=== PATIENT | female | born 1955 | race Hispanic/Latino ===

== ENCOUNTER 2018-11-28 03:32 | Emergency (ER) | payer OTHER ==
[2018-11-28 04:20] LABS: Absolute Lymphocytes (CBC) 2.7 K/uL (0.7-4.9); Absolute Monocytes 1.1 K/uL (0.1-1.3); Absolute Neutrophil 4.4 K/uL (1.8-8.0); Basophils % 0.7 % (0-1.3); Eosinophils % 1.2 % (0-4.4); Hematocrit 48.4 % (36.0-45.0); MPV 9.4 fL (7.6-11.3); Monocytes % 12.9 % (3.3-12.3); RBC Red Blood Cell Count 6.03 M/uL (3.86-4.86)
[2018-11-28] MEDS ORDERED: ONDANSETRON 4 MG/2 ML VIAL ONE (04:21)
[2018-11-28] MEDS ORDERED: MORPHINE 4 MG/ML SYR ONE (04:21)
[2018-11-28] MEDS ORDERED: PANTOPRAZOLE 40 MG INJ ONE (04:27)
[2018-11-28 04:41] LABS: Albumin 4.3 g/dL (3.4-5.0); Bilirubin Direct 0.2 mg/dL (0-0.2); Bilirubin Total 0.5 mg/dL (0.2-1.0); Protein, Total 8.4 g/dL (6.4-8.2)
[2018-11-28 04:43] LABS: Potassium 2.6 mmol/L (3.5-5.1)
[2018-11-28] MEDS ORDERED: NA CHLORIDE 0.9% 1,000 ML ONE ×3 (04:46→09:09)
[2018-11-28] MEDS ORDERED: KCL 20 MEQ/100 mL IVPB 20 MEQ/100 ML BAG IV ONE (06:10)
--- NOTE | 2018-11-28 07:12 | EDPHYS ---
Physician Documentation [facility] Name: Marlee Hoang Age: 63 yrs Sex: Female : 1955 Arrival Date: 11/28/2018 Time: 03:36 Bed 17 Private MD: ED Physician Angelito Bergeron HPI: 11/28 06:02 This 63 yrs old Female presents to ER via Ambulatory with complaints of tw4 Abdominal Pain, High Blood Sugar. 06:02 The patient or guardian reports. Onset: The symptoms/episode began/occurred today. tw4 Associated signs and symptoms: Pertinent positives:. Current symptoms: In the emergency department the patient's symptoms are unchanged from the initial presentation. The patient has not experienced similar symptoms in the past. The patient has not recently seen a physician. Historical: - Allergies: 03:49 Codeine; ea 09:44 Morphine; em 09:44 Levaquin; em - Home Meds: 09:44 amlodipine oral [Active]; em - PMHx: 03:49 Hypertension; ea - PSHx: 03:49 Hysterectomy; ea - Immunization history:: Adult Immunizations up to date. - Social history:: Smoking status: Patient/guardian denies using tobacco. - Ebola Screening: : No symptoms or risks identified at this time. ROS: 06:02 Constitutional: Negative for fever, chills, and weight loss, Eyes: Negative for injury, tw4 pain, redness, and discharge, ENT: Negative for injury, pain, and discharge, Cardiovascular: Negative for chest pain, palpitations, and edema, Respiratory: Negative for shortness of breath, cough, wheezing, and pleuritic chest pain, Back: Negative for injury and pain, MS/Extremity: Negative for injury and deformity, Skin: Negative for injury, rash, and discoloration. 06:02 Abdomen/GI: Positive for abdominal pain, Negative for nausea and vomiting, nausea, vomiting, and diarrhea, nausea, vomiting, abdominal cramps, abdominal distension, anorexia, dysphagia, hematemesis, black/tarry stool, rectal pain. Exam: 06:02 Constitutional: This is a well developed, well nourished patient who is awake, alert, tw4 and in no acute distress. Head/Face: Normocephalic, atraumatic. Chest/axilla: Normal chest wall appearance and motion. Nontender with no deformity. No lesions are appreciated. Cardiovascular: Regular rate and rhythm with a normal S1 and S2. No gallops, murmurs, or rubs. Normal PMI, no JVD. No pulse deficits. Respiratory: Lungs have equal breath sounds bilaterally, clear to auscultation and percussion. No rales, rhonchi or wheezes noted. No increased work of breathing, no retractions or nasal flaring. Back: No spinal tenderness. No costovertebral tenderness. Full range of motion. MS/ Extremity: Pulses equal, no cyanosis. Neurovascular intact. Full, normal range of motion. Neuro: Awake and alert, GCS 15, oriented to person, place, time, and situation. Cranial nerves II-XII grossly intact. Motor strength 5/5 in all extremities. Sensory grossly intact. Cerebellar exam normal. Normal gait. Psych: Awake, alert, with orientation to person, place and time. Behavior, mood, and affect are within normal limits. 06:02 Abdomen/GI: Inspection: abdomen appears normal, Bowel sounds: diminished, Palpation: mild abdominal tenderness, in the epigastric area, right upper quadrant and left upper quadrant. Vital Signs: 03:45 BP 157 / 110; Pulse 87; Resp 17; Temp 98.8; Pulse Ox 99% ; Weight 68.04 kg; Height 5 rr5 ft. 0 in. (152.40 cm); Pain 10/10; 04:35 BP 89 / 67; Pulse 66; Resp 17; Pulse Ox 98% ; rr5 04:40 BP 113 / 64; Pulse 64; Resp 16; Pulse Ox 100% ; rr5 04:49 BP 134 / 67; Pulse 96; Resp 17; Pulse Ox 96% ; rr5 05:15 BP 141 / 70; Pulse 77; Resp 18; Pulse Ox 98% ; rr5 05:30 BP 134 / 69; Pulse 73; Resp 17; Pulse Ox 99% ; rr5 06:00 BP 141 / 75; Pulse 80; Resp 20; Pulse Ox 99% ; rr5 06:40 BP 139 / 68; Pulse 79; Resp 19; Pulse Ox 100% ; rr5 08:30 BP 166 / 93; Pulse 80; Resp 20; Pulse Ox 100% on R/A; mh5 08:43 BP 66 / 27; Pulse 71; em 08:46 BP 83 / 60; Pulse 67; em 08:49 BP 85 / 68; Pulse 69; em 08:51 BP 121 / 69; Pulse 67; em 09:14 BP 154 / 74; Pulse 75; Resp 18; Pulse Ox 97% on R/A; mh5 09:40 BP 164 / 80; Pulse 78; Resp 18; Pulse Ox 99% on R/A; Pain 0/10; em 10:20 BP 167 / 73; Pulse 73; Resp 16; Pulse Ox 99% on R/A; em 03:45 Body Mass Index 29.29 (68.04 kg, 152.40 cm) rr5 05:[address] scan rr5 MDM: 03:43 Patient medically screened. tw4 06:09 Data reviewed: vital signs, nurses notes. Counseling: I had a detailed discussion with [facility] the patient and/or guardian regarding: the historical points, exam findings, and any diagnostic results supporting the discharge/admit diagnosis. 07:14 Differential diagnosis: gestational diabetes. Data interpreted: Pulse oximetry: 4 Interpretation: normal. ED course: D/W Dr Gamble hospitalist who agrees to accept pt for admitted. 11/28 03:43 Order name: Basic Metabolic Panel; Complete Time: 05:58 tw4 11/28 05:58 Interpretation: Normal except: GLUC 342; K 2.6; NA 135; BUN 24; GFR 52. tw4 11/28 03:43 Order name: CBC with Diff; Complete Time: 05:56 tw4 11/28 05:56 Interpretation: Normal except: RBC 6.03; HGB 16.5; HCT 48.4; MN% 12.9. tw4 11/28 03:43 Order name: Creatinine for Radiology; Complete Time: 04:39 tw4 11/28 04:39 Interpretation: Normal except: GFR 54. tw4 11/28 03:43 Order name: Hepatic Function; Complete Time: 05:57 tw 11/28 05:57 Interpretation: Normal except: ALK 168; TP 8.4; GLOB 4.1; A/G 1.0. tw4 11/28 03:43 Order name: Lipase; Complete Time: 05:57 tw4 11/28 05:57 Interpretation: Within normal limits: LIP 249. tw4 11/28 06:39 Order name: Troponin (emerg Dept Use Only) tw4 11/28 04:24 Order name: CT Abd/Pelvis - W/Contrast tw4 11/28 08:40 Order name: CXR XRAY eb 11/28 03:43 Order name: IV Saline Lock; Complete Time: 04:00 tw4 11/28 03:43 Order name: Labs collected and sent; Complete Time: 04:08 tw4 11/28 06:57 Order name: EKG; Complete Time: 06:57 tw4 11/28 07:01 Order name: Nasogastric Tube; Complete Time: 08:57 tw4 Administered Medications: Discontinued: LevaQUIN 500 mg 100 ml IVPB once over 60 mins 04:16 Drug: Zofran 4 mg Route: IVP; Site: right antecubital; rr5 05:41 Follow up: Response: No adverse reaction rr5 04:19 Drug: morphine 4 mg Route: IVP; Site: right antecubital; rr5 04:35 Follow up: Response: Adverse reaction, Physician notified rr5 06:24 Follow up: Response: Marked relief of symptoms rr5 04:24 Drug: ProTONIX 40 mg Route: IVP; Site: right antecubital; rr5 05:41 Follow up: Response: No adverse reaction rr5 04:35 Drug: NS 0.9% 1000 ml Route: IV; Rate: 1 bolus; Site: right antecubital; rr5 05:59 Follow up: Response: No adverse reaction; IV Status: Completed infusion; IV Intake: rr5 1000ml 06:20 Drug: Potassium Chloride 20 mEq Route: IV; Rate: calculated rate; Site: right rr5 antecubital; 08:10 Follow up: Response: No adverse reaction; IV Status: Completed infusion; IV Intake: em 100ml 06:20 Drug: NS 0.9% 1000 ml Route: IV; Rate: 100 ml/hr; Site: right antecubital; rr5 08:10 Follow up: IV Status: Completed infusion; IV Intake: 1000ml em 08:30 Drug: Flagyl 500 mg Volume: 100 ml; Route: IVPB; Rate: 200 ml/hr; Infused Over: 30 em mins; Site: right antecubital; 10:15 Follow up: Response: No adverse reaction; IV Status: Completed infusion; IV Intake: em 200ml 08:30 Drug: LevaQUIN 500 mg Volume: 100 ml; Route: IVPB; Infused Over: 60 mins; Site: right em antecubital; 09:05 Drug: NS 0.9% 1000 ml Route: IV; Rate: 1 bolus; Site: left antecubital; em 10:30 Follow up: IV Status: Completed infusion; IV Intake: 1000ml em 10:14 Drug: Rocephin 1 grams Route: IV; Rate: calculated rate; Site: left antecubital; ss 10:20 Follow up: Response: No adverse reaction; IV Status: Completed infusion; IV Intake: 10mlem Point of Care Testing: Blood Glucose: 03:47 Blood Glucose: 288 mg/dL; rr5 Ranges: Critical Glucose Levels:Adult <50 mg/dl or >400 mg/dl <40 mg/dl or >180 mg/dl Disposition: 11/28/18 07:11 Transfer ordered to [facility]. Diagnosis are Small bowel obstruction, Hematemesis. - Reason for transfer: Higher level of care. - Accepting physician is Hospitalist accepts at [facility]. - Condition is Stable. - Problem is new. - Symptoms have improved. Signatures: Dispatcher [employer] EDGeovani Mclaughlin, LABOR RELATIONS OFFICER LABOR RELATIONS OFFICER Annel Hudson RN RN Freda Mancini RN RN Angelito Ballesteros MD MD tw4 Guero Orr RN RN rr5 Corrections: (The following items were deleted from the chart) 05:58 04:39 Abnormal. tw4 tw4 09:44 03:49 Home Meds: None; ea em 10:59 07:11 11/28/2018 07:11 Transfer ordered to [facility]. Diagnosis is em Small bowel obstruction; Hematemesis. Reason for transfer: Higher level of care. Accepting physician is Hospitalist accepts at [facility]. Condition is Stable. Problem is new. Symptoms have improved. tw4
--- NOTE | 2018-11-28 07:12 | ER ---
Nurse's Notes [facility] Name: Marlee Hoang Age: 63 yrs Sex: Female : 1955 Arrival Date: 11/28/2018 Time: 03:36 Bed 17 Private MD: Diagnosis: Small bowel obstruction;Hematemesis Presentation: 11/28 03:45 Presenting complaint: Patient states: She has been having abdominal pain n/v/d since ea Nov 23, reports she had a few episodes of dark black vomit on the but refused to come to the hospital. Stated "the vomiting stopped but the pain got so bad today I had to come" Today she reports the pain in her abdomen became more intense and erin like it was burning. Transition of care: patient was not received from another setting of care. Onset of symptoms was November 28, 2018. Risk Assessment: Do you want to hurt yourself or someone else? Patient reports no desire to harm self or others. Initial Sepsis Screen: Does the patient meet any 2 criteria? No. Patient's initial sepsis screen is negative. Does the patient have a suspected source of infection? No. Patient's initial sepsis screen is negative. Care prior to arrival: None. 03:45 Method Of Arrival: Ambulatory ea 03:45 Acuity: LORI 3 ea Triage Assessment: 03:49 General: Appears uncomfortable, Behavior is appropriate for age. Pain: Complains of ea pain in right lower quadrant and left lower quadrant Quality of pain is described as burning, Aggravated by laying down intensifies the pain. Neuro: Level of Consciousness is awake, alert, obeys commands, Oriented to person, place, time, situation. Cardiovascular: Patient's skin is warm and dry. Respiratory: Airway is patent Respiratory effort is even, unlabored, Respiratory pattern is regular, symmetrical. GI: Abdomen is non-distended. Derm: Skin is pink, warm \\T\\ dry. Historical: - Allergies: 03:49 Codeine; ea 09:44 Morphine; em 09:44 Levaquin; em - Home Meds: 09:44 amlodipine oral [Active]; em - PMHx: 03:49 Hypertension; ea - PSHx: 03:49 Hysterectomy; ea - Immunization history:: Adult Immunizations up to date. - Social history:: Smoking status: Patient/guardian denies using tobacco. - Ebola Screening: : No symptoms or risks identified at this time. Screenin:48 Abuse screen: Denies threats or abuse. Nutritional screening: No deficits noted. ea Tuberculosis screening: No symptoms or risk factors identified. Fall Risk None identified. Assessment: 03:55 General: Appears in no apparent distress. uncomfortable, Behavior is calm, cooperative, rr5 appropriate for age. Pain: Complains of pain in abdomen Pain does not radiate. Pain currently is 10 out of 10 on a pain scale. Quality of pain is described as sharp, Pain began gradually, Is intermittent. Neuro: Level of Consciousness is awake, alert, obeys commands, Oriented to person, place, time, situation. Cardiovascular: Capillary refill < 3 seconds Patient's skin is warm and dry. Respiratory: Airway is patent Respiratory effort is even, unlabored, Respiratory pattern is regular, symmetrical. GI: Bowel sounds present X 4 quads. Abd is soft and non tender X 4 quads. Reports lower abdominal pain, upper abdominal pain, nausea, vomiting, vomited black as stated. : No signs and/or symptoms were reported regarding the genitourinary system. EENT: No signs and/or symptoms were reported regarding the EENT system. Derm: Skin is intact, Skin temperature is warm. Musculoskeletal: Capillary refill < 3 seconds, Range of motion: intact in all extremities. 04:35 Reassessment: complaints of dizziness BP checked 89/67mmHg. ED provider informed with rr5 order made and carried out. 04:40 Reassessment: 113/64 bp rechecked. Patient states feeling better. Patient states rr5 symptoms have improved. 05:10 Reassessment: Patient appears in no apparent distress at this time. Patient and/or rr5 family updated on plan of care and expected duration. Pain level reassessed. sent to CT scan Patient states feeling better. Patient states symptoms have improved. 06:20 Reassessment: Patient appears in no apparent distress at this time. Patient and/or rr5 family updated on plan of care and expected duration. Pain level reassessed. EDP came and explained the plan of care, patient is for transfer. Patient states feeling better. Patient states symptoms have improved. 08:00 Reassessment: Patient appears in no apparent distress at this time. Patient and/or em family updated on plan of care and expected duration. Pain level reassessed. Patient is alert, oriented x 3, equal unlabored respirations, skin warm/dry/pink. Patient denies pain at this time. Patient states feeling better. 08:36 Reassessment: Patient appears in no apparent distress at this time. Right AC IV em infiltrated, warm compresses placed, IV D/C. 08:43 Reassessment: pt became dizzy and diaphoretic after IV antibiotics were started (Flagyl em and Levaquin), BP 66/27, HR 71, pt placed in Trendelenburg and charge nurse and Dr. Corral notified, ordered to D/C Levaquin and give rocephin, started 2 L NS bolus, pt A\\T\\Ox3. 08:51 Reassessment: Patient appears in no apparent distress at this time. Patient is alert, em oriented x 3, equal unlabored respirations, skin warm/dry/pink. BP 121/69, HR 67. 09:15 Reassessment: Patient appears in no apparent distress at this time. Patient and/or em family updated on plan of care and expected duration. Pain level reassessed. Patient is alert, oriented x 3, equal unlabored respirations, skin warm/dry/pink. pt reports feeling better BP has improved, will continue to monitor Patient states symptoms have improved. 09:43 Reassessment: report called to SADE Liu at [facility], pending transportation. em 10:20 Reassessment: Patient appears in no apparent distress at this time. Patient and/or em family updated on plan of care and expected duration. Pain level reassessed. Patient is alert, oriented x 3, equal unlabored respirations, skin warm/dry/pink. 10:44 Reassessment: Patient appears in no apparent distress at this time. Patient and/or em family updated on plan of care and expected duration. Pain level reassessed. Patient is alert, oriented x 3, equal unlabored respirations, skin warm/dry/pink. report given to [facility], will transport pt to [facility]. Vital Signs: 03:45 BP 157 / 110; Pulse 87; Resp 17; Temp 98.8; Pulse Ox 99% ; Weight 68.04 kg; Height 5 rr5 ft. 0 in. (152.40 cm); Pain 10/10; 04:35 BP 89 / 67; Pulse 66; Resp 17; Pulse Ox 98% ; rr5 04:40 BP 113 / 64; Pulse 64; Resp 16; Pulse Ox 100% ; rr5 04:49 BP 134 / 67; Pulse 96; Resp 17; Pulse Ox 96% ; rr5 05:15 BP 141 / 70; Pulse 77; Resp 18; Pulse Ox 98% ; rr5 05:30 BP 134 / 69; Pulse 73; Resp 17; Pulse Ox 99% ; rr5 06:00 BP 141 / 75; Pulse 80; Resp 20; Pulse Ox 99% ; rr5 06:40 BP 139 / 68; Pulse 79; Resp 19; Pulse Ox 100% ; rr5 08:30 BP 166 / 93; Pulse 80; Resp 20; Pulse Ox 100% on R/A; mh5 08:43 BP 66 / 27; Pulse 71; em 08:46 BP 83 / 60; Pulse 67; em 08:49 BP 85 / 68; Pulse 69; em 08:51 BP 121 / 69; Pulse 67; em 09:14 BP 154 / 74; Pulse 75; Resp 18; Pulse Ox 97% on R/A; mh5 09:40 BP 164 / 80; Pulse 78; Resp 18; Pulse Ox 99% on R/A; Pain 0/10; em 10:20 BP 167 / 73; Pulse 73; Resp 16; Pulse Ox 99% on R/A; em 03:45 Body Mass Index 29.29 (68.04 kg, 152.40 cm) rr5 05:[address] scan rr5 ED Course: 03:36 Patient arrived in ED. am2 03:43 Angelito Bergeron MD is Attending Physician. tw4 03:45 Pulse ox on. NIBP on. rr5 03:47 Guero Orr RN is Primary Nurse. rr5 03:48 Triage completed. ea 03:48 Patient has correct armband on for positive identification. Bed in low position. Call ea light in reach. Side rails up X2. 03:48 Arm band placed on right wrist. Patient placed in an exam room, on a stretcher, on ea pulse oximetry. 03:59 Inserted saline lock: 22 gauge in right antecubital area, using aseptic technique. Blood collected. 03:59 Initial lab(s) drawn, by me, sent to lab. 05:14 CT completed. Patient tolerated procedure well. Patient moved to CT via stretcher. eh Patient moved back from CT. 05:15 CT Abd/Pelvis - W/Contrast In Process Unspecified. EDMS 06:12 initiated a transfer with Marga Garcia at the [facility] transfer center. eb 06:30 digital operations analyst on. rr5 06:31 connected the GI doctor siebel solution architect for [facility] with ED doc for patient transfer eb consultation. 06:38 connected the Hospitalist doctor siebel solution architect for [facility] with ED doc for patient eb transfer consulation. 07:17 administrative approval given by Marga Garcia , patient is going to 16 tower bed 15, eb report to be called to [phone]/ [facility]mitry Schimtz has accepted the patient in transfer. 08:14 NGT: inserted 16 Fr. via right nare. verified placement of air over stomach, verified em return of gastric contents, Placement verified by X-ray, to intermittent suction. Returned gastric contents. Returned bile. Amount of gastric contents removed by suction 300ml. Patient tolerated well. 08:36 IV discontinued, intact, bleeding controlled, No redness/swelling at site. Pressure em dressing applied. 08:55 Inserted saline lock: 20 gauge in left antecubital area, using aseptic technique. em 09:13 EKG done, by ED staff, reviewed by Oscar Corral MD. 5 09:22 CXR XRAY In Process Unspecified. EDMS 09:48 No provider procedures requiring assistance completed. Patient transferred, IV remains em in place. Administered Medications: Discontinued: LevaQUIN 500 mg 100 ml IVPB once over 60 mins 04:16 Drug: Zofran 4 mg Route: IVP; Site: right antecubital; rr5 05:41 Follow up: Response: No adverse reaction rr5 04:19 Drug: morphine 4 mg Route: IVP; Site: right antecubital; rr5 04:35 Follow up: Response: Adverse reaction, Physician notified rr5 06:24 Follow up: Response: Marked relief of symptoms rr5 04:24 Drug: ProTONIX 40 mg Route: IVP; Site: right antecubital; rr5 05:41 Follow up: Response: No adverse reaction rr5 04:35 Drug: NS 0.9% 1000 ml Route: IV; Rate: 1 bolus; Site: right antecubital; rr5 05:59 Follow up: Response: No adverse reaction; IV Status: Completed infusion; IV Intake: rr5 1000ml 06:20 Drug: Potassium Chloride 20 mEq Route: IV; Rate: calculated rate; Site: right rr5 antecubital; 08:10 Follow up: Response: No adverse reaction; IV Status: Completed infusion; IV Intake: em 100ml 06:20 Drug: NS 0.9% 1000 ml Route: IV; Rate: 100 ml/hr; Site: right antecubital; rr5 08:10 Follow up: IV Status: Completed infusion; IV Intake: 1000ml em 08:30 Drug: Flagyl 500 mg Volume: 100 ml; Route: IVPB; Rate: 200 ml/hr; Infused Over: 30 em mins; Site: right antecubital; 10:15 Follow up: Response: No adverse reaction; IV Status: Completed infusion; IV Intake: em 200ml 08:30 Drug: LevaQUIN 500 mg Volume: 100 ml; Route: IVPB; Infused Over: 60 mins; Site: right em antecubital; 09:05 Drug: NS 0.9% 1000 ml Route: IV; Rate: 1 bolus; Site: left antecubital; em 10:30 Follow up: IV Status: Completed infusion; IV Intake: 1000ml em 10:14 Drug: Rocephin 1 grams Route: IV; Rate: calculated rate; Site: left antecubital; ss 10:20 Follow up: Response: No adverse reaction; IV Status: Completed infusion; IV Intake: 10mlem Point of Care Testing: Blood Glucose: 03:47 Blood Glucose: 288 mg/dL; rr5 Ranges: Intake: 05:59 IV: 1000ml; Total: 1000ml. rr5 08:10 IV: 100ml; Total: 1100ml. em 08:10 IV: 1000ml; Total: 2100ml. em 10:15 IV: 200ml; Total: 2300ml. em 10:20 IV: 10ml; Total: 2310ml. em 10:30 IV: 1000ml; Total: 3310ml. em Outcome: 07:11 ER care complete, transfer ordered by tw4 10:59 Transferred by [facility] to [facility], Transfer form completed. em X-rays sent w/ patient. :59 Condition: good 10:59 Instructed on the need for transfer, Demonstrated understanding of instructions. 10:59 Patient left the ED. em Signatures: Dispatcher [employer] EDMS Gume Ramos, Geovani, BREADMAN BREADMAN em Annel Hudson, SADE RN Daysi Patel [facility] Tor, Ericka 2 Freda Mancini RN RN Angelito Ballesteros MD MD tw4 Sharmaine Bowman Raymond RN RN rr5 Josie Craft gm Corrections: (The following items were deleted from the chart) 05:16 05:10 BP 141 / 70; Pulse 77bpm; Resp 18bpm; Pulse Ox 98%; came back from ct scan; rr5 rr5 09:36 08:30 Reassessment: pt became dizzy and diaphoretic after IV antibiotics were started em (Flagyl and Levaquin), BP 66/27, HR 71, pt placed in Trendelenburg and charge nurse and Dr. Corral notified, ordered to D/C Levaquin and give rocephin, started 2 L NS bolus, pt A\\T\\Ox3 em 09:44 03:49 Home Meds: None; ea em 09:45 08:16 Reassessment: Patient appears in no apparent distress at this time. Right AC IV em infiltrated, warm compresses placed, IV D/C em
[2018-11-28] MEDS ORDERED: METRONIDAZOLE 500mg IVPB 500 MG/100 ML BAG IV ONE (08:04)
[2018-11-28] MEDS ORDERED: Levofloxacin500mg IV 500 MG/100 ML BAG IV ONE (08:04)
--- NOTE | 2018-11-28 08:53 | RAD REPORT ---
EXAM DESCRIPTION: CTAbdomen Pelvis W Contrast - 11/28/2018 7:17 am CLINICAL HISTORY: Abdominal pain. ABD PAIN COMPARISON: No comparisons TECHNIQUE: Biphasic CT imaging of the abdomen and pelvis was performed with 100 ml non-ionic IV cont rast. All CT scans are performed using dose optimization technique as appropriate and may include automated exposure control or mA/KV adjustment according to patient size. FINDINGS: Mild linear subsegmental atelectasis is present both lung bases.Small hiatal hernia. Diffuse fatty liver is present. Calcified gallstone noted. The spleen, pancreas, adrenal glands and k idneys are within normal limits. A single distended loop of small intestine is present in the left abdomen. Fluid-filled colon is seen which may indicate ileus. The appendix is normal. No evidence of significant lymphadenopathy. No suspicious bony findings. IMPRESSION: A single distended loop of small intestine is seen in the left abdomen. In the correct c linical setting, this may indicate a developing SBO. Cholelithiasis.
--- NOTE | 2018-11-28 09:30 | RAD REPORT ---
EXAM DESCRIPTION: RAD - Chest Single View - 11/28/2018 9:22 am CLINICAL HISTORY: ng tube placement Chest pain. COMPARISON: No comparisons FINDINGS: Portable technique limits examination quality. The lungs are grossly clear. The heart is upper limit of normal in size. Enteric tube descends into t he stomach.
[2018-11-28] MEDS ORDERED: CEFTRIAXONE/SWI 1gm 1 GM/10 ML SYR ONE (10:19)
--- NOTE | 2018-11-28 14:50 | EKG ---
Test Date: 2018-11-28 Test Time: 07:33:26 Cell Phone Repair Technician: GIULIANO MEASUREMENT RESULTS: Intervals: Rate: 77 PA: 160 QRSD: 86 QT: 418 QTc: 473 [place]: P: 40 PA: 160 QRS: 12 T: -87 INTERPRETIVE STATEMENTS: Normal sinus rhythm ST & T wave abnormality, consider inferolateral ischemia Prolonged QT Abnormal ECG Compared to ECG 10/07/2006 13:20:04 ST (T wave) deviation now present Possible ischemia now present Prolonged QT interval now present Sinus bradycardia no longer present Electronically Signed On 11-28-18 14:50:05 CAMERA MECHANIC by [place]
== END 2018-11-28 10:59 | disposition short-term general hospital (02) ==
LOC: ER 03:32
DX: K56.699 Other intestinal obstruction unspecified as to partial versus complete obstruction (principal); K92.0 Hematemesis; I10 Essential (primary) hypertension; Z88.1 Allergy status to other antibiotic agents; Z88.5 Allergy status to narcotic agent
CPT/HCPCS: 36415; 71045; 74177; 80048; 80076; 82962; 83690; 84484; 85025; 93005; 99285; C9113; J0696; J2405; J7030; Q9967

== ENCOUNTER 2019-01-02 07:24 | Emergency (ER) | payer OTHER ==
--- OUTSIDE RECORDS SUMMARY | 2019-01-02 07:26 | XMS REPORT ---
:1955 Author Organization [facility]neut Address [address] [place] [address] Dr. Garcia [address] [place] [address] Care Team Providers Name Role Phone SHAYNE ESTEVEZ BRADENDIMITRIOS Unavailable Unavailable Problems This patient has no known problems. Allergies, Adverse Reactions, Alerts This patient has no known allergies or adverse reactions. Medications This patient has no known medications. Results Test Description Test Time Test Comments Text Results Atomic Results Result Comments POCT-GLUCOSE METER 2018-11-29 11:35:00 Test Item Value Reference Range Comments POC-GLUCOSE METER (BEAKER) (test 182 mg/dL 70-110 TESTED AT [address] tddb=5220) [facility] [id number] POCT-GLUCOSE [id number] 06:04:00 Test Item Value Reference Range Comments POC-GLUCOSE METER (BEAKER) 206 mg/dL 70-110 TESTED AT [address] (test ctty=4590) [facility] [id number] POCT-GLUCOSE [id number] 00:17:00 Test Item Value Reference Range Comments POC-GLUCOSE METER (BEAKER) 178 mg/dL 70-110 TESTED AT [address] (test eyfr=3371) [facility] [id number] POCT-GLUCOSE [id number] 18:20:00 Test Item Value Reference Range Comments POC-GLUCOSE METER (BEAKER) 156 mg/dL 70-110 TESTED AT [address] (test khaa=8079) [facility] [address] HEMOGLOBIN [id number] 16:48:00 Test Item Value Reference Range Comments HEMOGLOBIN A1C (BEAKER) (test hupe=141) 13.0 % 4.3-6.1 HEPATIC FUNCTION [id number] 14:55:00 Test Item Value Reference Range Comments TOTAL PROTEIN (BEAKER) (test hqpw=633) 6.4 gm/dL 6.0-8.3 ALBUMIN (BEAKER) (test qwmm=9195) 3.9 g/dL 3.5-5.0 BILIRUBIN TOTAL (BEAKER) (test xlvc=987) 0.4 mg/dL 0.2-1.2 BILIRUBIN DIRECT (BEAKER) (test xxan=169) 0.2 mg/dL 0.1-0.5 ALKALINE PHOSPHATASE (BEAKER) (test amnx=594) 116 U/L 40-150 AST (SGOT) (BEAKER) (test ojbc=001) 23 U/L 5-34 ALT (SGPT) (BEAKER) (test gais=750) 38 U/L 6-55 BASIC METABOLIC [id number] 14:55:00 Test Item Value Reference Range Comments SODIUM (BEAKER) (test 141 meq/L 136-145 uzyh=602) POTASSIUM (BEAKER) (test 2.8 meq/L 3.5-5.1 ergi=097) CHLORIDE (BEAKER) (test 110 meq/L 98-107 relu=860) CO2 (BEAKER) (test 21 meq/L 22-29 sqpw=477) BLOOD UREA NITROGEN 13 mg/dL 7-21 (BEAKER) (test ecob=050) CREATININE (BEAKER) (test 0.78 mg/dL 0.57-1.25 mozg=790) GLUCOSE RANDOM (BEAKER) 306 mg/dL 70-105 (test xuyx=738) CALCIUM (BEAKER) (test 8.0 mg/dL 8.4-10.2 fidv=112) EGFR (BEAKER) (test mL/min/1.73 sq m INSUFFICIENT CLINICAL DATA bwho=2168) TO CALCULATE ESTIMATED GFR. LACTIC ACID, VENOUS, WHOLE [id number] 14:48:00 Test Item Value Reference Range Comments LACTATE BLOOD VENOUS (2) (BEAKER) (test 1.0 mmol/L 0.5-2.2 kkao=3373) CBC W/PLT COUNT & AUTO [id number] 14:38:00 Test Item Value Reference Range Comments WHITE BLOOD CELL COUNT (BEAKER) (test xuix=639) 4.8 K/ L 3.5-10.5 RED BLOOD CELL COUNT (BEAKER) (test vxvh=867) 5.32 M/ L 3.93-5.22 HEMOGLOBIN (BEAKER) (test kqgj=677) 14.1 GM/DL 11.2-15.7 HEMATOCRIT (BEAKER) (test rrxv=230) 43.0 % 34.1-44.9 MEAN CORPUSCULAR VOLUME (BEAKER) (test ezjg=129) 80.8 fL 79.4-94.8 MEAN CORPUSCULAR HEMOGLOBIN (BEAKER) (test 26.5 pg 25.6-32.2 alil=723) MEAN CORPUSCULAR HEMOGLOBIN CONC (BEAKER) (test 32.8 GM/DL 32.2-35.5 szrc=670) RED CELL DISTRIBUTION WIDTH (BEAKER) (test 13.7 % 11.7-14.4 plqx=959) PLATELET COUNT (BEAKER) (test qfjy=783) 291 K/CU MM 150-450 MEAN PLATELET VOLUME (BEAKER) (test edzo=416) 10.5 fL 9.4-12.3 NUCLEATED RED BLOOD CELLS (BEAKER) (test 0 /100 WBC 0-0 wrob=753) NEUTROPHILS RELATIVE PERCENT (BEAKER) (test 57 % fimh=636) LYMPHOCYTES RELATIVE PERCENT (BEAKER) (test 30 % zato=751) MONOCYTES RELATIVE PERCENT (BEAKER) (test 12 % byla=648) EOSINOPHILS RELATIVE PERCENT (BEAKER) (test 0 % nefl=027) BASOPHILS RELATIVE PERCENT (BEAKER) (test 1 % sfwo=645) NEUTROPHILS ABSOLUTE COUNT (BEAKER) (test 2.70 K/ L 1.56-6.13 sskm=250) LYMPHOCYTES ABSOLUTE COUNT (BEAKER) (test 1.44 K/ L 1.18-3.74 qzdf=187) MONOCYTES ABSOLUTE COUNT (BEAKER) (test 0.56 K/ L 0.24-0.36 kizt=046) EOSINOPHILS ABSOLUTE COUNT (BEAKER) (test 0.01 K/ L 0.04-0.36 kudo=312) BASOPHILS ABSOLUTE COUNT (BEAKER) (test 0.04 K/ L 0.01-0.08 vnvf=661) IMMATURE GRANULOCYTES-RELATIVE PERCENT (BEAKER) 1 % 0-1 (test jktw=4317) POCT-GLUCOSE [id number] 12:54:00 Test Item Value Reference Range Comments POC-GLUCOSE METER (BEAKER) 322 mg/dL 70-110 TESTED AT [address] (test mioc=3084) [facility] [address]
--- OUTSIDE RECORDS SUMMARY | 2019-01-02 07:26 | XMS REPORT | Clinical Summary ---
:[address] [facility] Address [address] [place] [address] Care Team Providers Name Role Phone Unavailable Primary Care Provider Unavailable Allergies Active Allergy Reactions Severity Noted Date Comments Codeine 11/28/2018 Nausea and vomitting Levofloxacin In D5w High 11/28/2018 Hypotensive Morphine High 11/28/2018 Dizziness and Hypotensive Medications No known medications Active Problems Problem Noted Date Small bowel obstruction 11/28/2018 Encounters Date Type Specialty Care Team Description 11/28/2018 - Hospital General Internal [place], Small bowel obstruction ( HCC); 11/29/2018 Encounter Medicine [place] Uncontrolled type 2 diabetes mellitus with hyperglycemia (HCC); MD Arsenio Coffee ground emesis Juan Mcconnell MD Kulkarni, Mrinalini Zade, MD 11/28/2018 Travel after 01/01/2018 Social History Tobacco Use Types Packs/Day Years Used Date Never Smoker Smokeless Tobacco: Never Used Alcohol Use Drinks/Week oz/Week Comments No Alcohol Habits Answer Date Recorded How often do you have a drink containing alcohol? Never 11/28/2018 How many drinks containing alcohol do you have on a typical Not asked day when you are drinking? How often do you have six or more drinks on one occasion? Not asked Sex Assigned at Date Recorded Not on file Job Start Date Occupation Industry Not on file Not on file Not on file Travel History Travel Start Travel End No recent travel history available. Last Filed Vital Signs Vital Sign Reading Time Taken Blood Pressure 186/77 11/29/2018 11:26 AM [employer] Pulse 65 11/29/2018 11:26 AM [employer] Temperature 35.9 C (96.7 F) 11/29/2018 11:26 AM [employer] Respiratory Rate 18 11/29/2018 11:26 AM [employer] Oxygen Saturation 96% 11/29/2018 11:26 AM [employer] Inhaled Oxygen Concentration - - Weight 66.8 kg (147 lb 3.2 oz) 11/29/2018 3:19 AM [employer] Height 157.5 cm (5' 2") 11/28/2018 12:27 PM [employer] Body Mass Index 26.92 11/29/2018 3:19 AM [employer] Plan of Treatment Not on file Procedures Procedure Name Priority Date/Time Associated Comments Diagnosis REPORT OF PROCEDURE - 12/18/2018 10:00 ENDOSCOPY SCAN AM [employer] POCT-GLUCOSE METER Routine 11/29/2018 11:28 Results for this AM [employer] procedure are in the results section. POCT-GLUCOSE METER Routine 11/29/2018 6:01 Results for this AM [employer] procedure are in the results section. POCT-GLUCOSE METER Routine 11/29/2018 12:06 Results for this AM [employer] procedure are in the results section. POCT-GLUCOSE METER Routine 11/28/2018 5:57 Results for this PM [employer] procedure are in the results section. CBC W/PLT COUNT & Routine 11/28/2018 2:23 Results for this AUTO DIFFERENTIAL PM [employer] procedure are in the results section. LACTIC ACID, VENOUS, Routine 11/28/2018 2:23 Results for this WHOLE BLOOD PM [employer] procedure are in the results section. HEPATIC FUNCTION Routine 11/28/2018 2:23 Results for this PANEL PM [employer] procedure are in the results section. HEMOGLOBIN A1C AP Routine 11/28/2018 2:23 Results for this PM [employer] procedure are in the results section. CBC W/PLT COUNT & Routine 11/28/2018 2:23 Results for this AUTO DIFFERENTIAL PM [employer] procedure are in the results section. BASIC METABOLIC PANEL Routine 11/28/2018 2:23 Results for this (7) PM [employer] procedure are in the results section. POCT-GLUCOSE METER Routine 11/28/2018 12:52 Results for this PM [employer] procedure are in the results section. after 01/01/2018 Results EKG-SCANNED (12/18/2018 10:00 AM [employer]ER) Narrative Performed At POC-Glucose meter (11/29/2018 11:28 AM [employer]ALENT BU[employer]ER)Only the most recent of5 resultswithin the time period is included. POC-Glucose Meter 182 (H)Comment: TESTED AT 70 - 110 mg/dL [facility] [address] [place] [address] Specimen Blood Performing Organization Address City/State/Zipcode Phone Number [facility] [address] [place], [place] [phone] CENTER CBC with platelet count + automated diff (11/28/2018 2:23 PM [employer]ER) WBC 4.8 3.5 - 10.5 K/L [facility] RBC 5.32 (H) 3.93 - 5.22 M/L [facility] Hemoglobin 14.1 11.2 - 15.7 GM/DL [facility] Hematocrit 43.0 34.1 - 44.9 % [facility] MCV 80.8 79.4 - 94.8 fL [facility] MCH 26.5 25.6 - 32.2 pg [facility] MCHC 32.8 32.2 - 35.5 GM/DL [facility] RDW 13.7 11.7 - 14.4 % [facility] Platelets 291 150 - 450 K/CU MM [facility] MPV 10.5 9.4 - 12.3 fL [facility] nRBC 0 0 - 0 /100 WBC [facility] % Neutros 57 % [facility] % Lymphs 30 % [facility] % Monos 12 % [facility] % Eos 0 % [facility] % Baso 1 % [facility] # Neutros 2.70 1.56 - 6.13 K/L [facility] # Lymphs 1.44 1.18 - 3.74 K/L [facility] # Monos 0.56 (H) 0.24 - 0.36 K/L [facility] # Eos 0.01 (L) 0.04 - 0.36 K/L [facility] # Baso 0.04 0.01 - 0.08 K/L [facility] Immature Granulocytes-Relative 1 0 - 1 % [facility] Specimen Blood - Arm, Right Performing Organization Address [facility] Phone Number [address] [address] [phone] [place] Lactic acid, venous, whole blood (11/28/2018 2:23 PM [employer]ER) Lactate, Venous 1.0 0.5 - 2.2 mmol/L [facility] Specimen Blood - Arm, Right Performing Organization Address [facility] Phone Number [address] [address] [phone] [place] Hemoglobin A1c (11/28/2018 2:23 PM [employer]ER) Hemoglobin A1C 13.0 (H) 4.3 - 6.1 % [facility] Specimen Blood - Arm, Right Performing Organization Address [facility] Phone Number [address] [address] [phone] [place] Hepatic function panel (11/28/2018 2:23 PM [employer]ER) Protein, Total 6.4 6.0 - 8.3 gm/dL [facility] Albumin 3.9 3.5 - 5.0 g/dL [facility] Total Bilirubin 0.4 0.2 - 1.2 mg/dL [facility] Bilirubin, Direct 0.2 0.1 - 0.5 mg/dL [facility] Alkaline Phosphatase 116 40 - 150 U/L [facility] AST 23 5 - 34 U/L [facility] ALT 38 6 - 55 U/L [facility] Specimen Blood - Arm, Right Performing Organization Address City/[facility] Phone Number [facility] [address], [place] [phone] [place] Basic metabolic panel (11/28/2018 2:23 PM [employer]ER) Sodium 141 136 - 145 meq/L [facility] Potassium 2.8 (L) 3.5 - 5.1 meq/L [facility] Chloride 110 (H) 98 - 107 meq/L [facility] CO2 21 (L) 22 - 29 meq/L [facility] BUN 13 7 - 21 mg/dL [facility] Creatinine 0.78 0.57 - 1.25 mg/dL [facility] Glucose 306 (H) 70 - 105 mg/dL [facility] Calcium 8.0 (L) 8.4 - 10.2 mg/dL [facility] EGFR Comment: INSUFFICIENT CLINICAL mL/min/1.73 sq m [facility] DATA TO CALCULATE ESTIMATED [facility] GFR. Specimen Blood - Arm, Right Performing Organization Address City/State/Zipcode Phone Number [facility] [address], [place] [phone] [place] after 01/01/2018 Insurance Payer Benefit Plan / Group Subscriber ID Type Phone Address [employer] - [employer] CARE C[employer] HMO/POS/OPEN ACCESS xxxxxxxxx HMO/POS Advance Directives For more information, please contact:[address] [phone] Code Status Date Activated Date Inactivated Comments Full Code 11/28/2018 2:05 PM This code status was determined by: Patient
--- NOTE | 2019-01-02 08:31 | RAD REPORT ---
EXAM DESCRIPTION: CT - Head Brain Wo Cont - 01/02/2019 8:16 am CLINICAL HISTORY: Right-sided headache COMPARISON: CT head January 2010 TECHNIQUE: Axial 5 mm thick images of the head were obtained without IV contrast. All CT scans are performed using dose optimization technique as appropriate and may include automated exposure control or mA/KV adjustment according to patient size. FINDINGS: No intracranial hemorrhage, mass, edema or shift of mid-line structures. No acute cortical based infarction. No cortical edema or sulcal effacement. Asymmetry is created by head tilt within t he scanner. Diminished attenuation is present in the left basal ganglia and internal capsule. This is similar to slightly progressive from 2009. This is probably an old ischemic event in would not likel y be relevant to a right headache pain pattern. Ventricles are normal size. Mastoid air cells and visualized portions of the paranasal sinuses are clear. No acute bony findings. IMPRESSION: No hemorrhage, mass or acute intracranial finding. No abnormality to explain the right-s ided headache pattern. Diminished attenuation in the left basal ganglia and internal capsule region probably old ischemic ev ent. If patient continues to have unexplained symptoms, followup outpatient MRI may be helpful for full ch aracterization.
[2019-01-02 08:33] LABS: Absolute Monocytes 0.8 K/uL (0.1-1.3); Absolute Neutrophil 9.1 K/uL (1.8-8.0); Basophils % 0.8 % (0-1.3); Eosinophils % 0.4 % (0-4.4); Hematocrit 43.1 % (36.0-45.0); Lymphocytes % 16.6 % (15.3-44.8); MPV 9.1 fL (7.6-11.3); Monocytes % 6.7 % (3.3-12.3); RBC Red Blood Cell Count 5.41 M/uL (3.86-4.86)
[2019-01-02 08:47] LABS: Potassium 3.3 mmol/L (3.5-5.1)
[2019-01-02] MEDS ORDERED: FENTANYL CITR 100 MCG/2 ML ONE (08:49)
[2019-01-02] MEDS ORDERED: KETOROLAC 30 MG/ML INJ ONE (09:56)
--- NOTE | 2019-01-02 10:17 | ER ---
Nurse's Notes [facility] Name: Marlee Hoang Age: 63 yrs Sex: Female : 1955 Arrival Date: 01/02/2019 Time: 07:26 Bed 6 Private MD: Diagnosis: Headache Presentation: 01/02 07:39 Presenting complaint: Right sided headache and N/V x 2 days. Transition of care: hb patient was not received from another setting of care. Onset of symptoms was January 01, 2019. Risk Assessment: Do you want to hurt yourself or someone else? Patient reports no desire to harm self or others. Initial Sepsis Screen: Does the patient meet any 2 criteria? No. Patient's initial sepsis screen is negative. Does the patient have a suspected source of infection? No. Patient's initial sepsis screen is negative. Care prior to arrival: None. 07:39 Method Of Arrival: Ambulatory 07:39 Acuity: LORI 3 hb Triage Assessment: 07:49 Headache History: Denies prior headaches. General: Appears in no apparent distress. bp uncomfortable, Behavior is cooperative, appropriate for age, anxious. Pain: Complains of pain in head Pain currently is 7 out of 10 on a pain scale. Pain began suddenly, 2-3 days ago. Also complains of nausea. EENT: No deficits noted. Neuro: Level of Consciousness is awake, alert, obeys commands, Oriented to person, place, time, situation, Appropriate for age. Cardiovascular: No deficits noted. Respiratory: Airway is patent Respiratory effort is even, unlabored, Respiratory pattern is regular, symmetrical. GI: Reports nausea, vomiting. : No signs and/or symptoms were reported regarding the genitourinary system. Derm: No deficits noted. Musculoskeletal: Circulation, motion, and sensation intact. Range of motion: intact in all extremities. Historical: - Allergies: 07:40 Codeine; hb 07:40 Levaquin; hb 07:40 Morphine; hb - Home Meds: 07:40 amlodipine oral [Active]; hb - PMHx: 07:40 Hypertension; hb - PSHx: 07:40 Hysterectomy; hb - Immunization history:: Adult Immunizations up to date. - Social history:: Smoking status: Patient/guardian denies using tobacco. - Ebola Screening: : No symptoms or risks identified at this time. Screenin:40 Abuse screen: Denies threats or abuse. Denies injuries from another. Nutritional hb screening: No deficits noted. Tuberculosis screening: No symptoms or risk factors identified. Fall Risk None identified. Assessment: 07:53 General: SEE TRIAGE NOTE. bp 09:53 Reassessment: NO ABNORMALITIES NOTED ON CT OR LABWORK. PT OFFERED LP FURTHER bp DIAGNOSTIC, BUT DECLINED. 10:24 Reassessment: PT D/C HOME AMBULATORY WITH FAMILY, DX WITH HEADACHE. bp Vital Signs: 07:39 BP 174 / 81; Pulse 70; Resp 16; Temp 97.8(TE); Pulse Ox 97% on R/A; Weight 65.77 kg; hb Height 5 ft. 2 in. (157.48 cm); Pain 10/10; 07:55 BP 151 / 85; Pulse 65; Resp 14; Pulse Ox 98% ; bp 09:00 BP 159 / 74; Pulse 69; Resp 14; Pulse Ox 95% ; bp 10:00 BP 143 / 70; Pulse 61; Resp 14; Pulse Ox 97% ; bp 07:39 Body Mass Index 26.52 (65.77 kg, 157.48 cm) hb ED Course: 07:26 Patient arrived in ED. rg4 07:33 Orlando Broderick, SADE is Primary Nurse. bp 07:39 Anthony Salmeron MD is Attending Physician. kdr 07:40 Triage completed. hb 07:52 Arm band placed on. bp 07:54 Patient has correct armband on for positive identification. Bed in low position. Call bp light in reach. Side rails up X2. Adult w/ patient. 08:18 CT Head Brain wo Cont In Process Unspecified. EDMS 08:31 Inserted saline lock: 20 gauge in right antecubital area, using aseptic technique. bp Blood collected. 10:24 No provider procedures requiring assistance completed. IV discontinued, intact, bp bleeding controlled, No redness/swelling at site. Pressure dressing applied. Administered Medications: 08:43 Drug: fentaNYL (PF) 25 mcg Route: IVP; Site: right antecubital; bp 09:51 Follow up: Response: Pain is decreased bp 09:35 Drug: TORadol 30 mg Route: IVP; Site: right antecubital; bp 10:24 Follow up: Response: Pain is decreased bp Outcome: 10:16 Discharge ordered by . kdr 10:25 Discharged to home ambulatory, with family. bp 10:25 Condition: stable 10:25 Discharge instructions given to patient, family, Instructed on discharge instructions, follow up and referral plans. medication usage, Demonstrated understanding of instructions, follow-up care, medications, Prescriptions given X 1. 10:25 Patient left the ED. bp Signatures: Dispatcher [employer] EDMS Anthony Salmeron MD MD [facility] Lacy Regalado RN RN Diana Mayberry 4 Orlando Broderick RN RN bp
--- NOTE | 2019-01-02 10:17 | EDPHYS ---
Physician Documentation [facility] Name: Marlee Hoang Age: 63 yrs Sex: Female : 1955 Arrival Date: 01/02/2019 Time: 07:26 Bed 6 Private MD: ED Physician Anthony Salmeron HPI: 01/02 07:59 This 63 yrs old Female presents to ER via Ambulatory with complaints of kdr Headache. 07:59 The patient complains of pain to the top of head, left frontal area and right frontal kdr area. The patient describes the headache as aching, crushing, a pressure, unrelenting. Onset: The symptoms/episode began/occurred yesterday. Associated signs and symptoms: Pertinent positives: nausea, Pertinent negatives: altered mental status, fever, malaise, neck stiffness, paresthesias, Photophobia rash, sinus congestion, sinus tenderness, vision changes, vision loss, weakness, vertigo. Severity of symptoms: At its worst the pain was severe, incapacitating, just prior to arrival, in the emergency department the pain is unchanged. Headache History: The patient has had previous headaches and this one is more severe than previous episodes. The symptoms are alleviated by nothing. the symptoms are aggravated by nothing. The patient has not experienced similar symptoms in the past. The patient has not recently seen a physician. Historical: - Allergies: 07:40 Codeine; hb 07:40 Levaquin; hb 07:40 Morphine; hb - Home Meds: 07:40 amlodipine oral [Active]; hb - PMHx: 07:40 Hypertension; hb - PSHx: 07:40 Hysterectomy; hb - Immunization history:: Adult Immunizations up to date. - Social history:: Smoking status: Patient/guardian denies using tobacco. - Ebola Screening: : No symptoms or risks identified at this time. ROS: 07:59 Constitutional: Negative for fever, chills, and weight loss, Eyes: Negative for injury, kdr pain, redness, and discharge, ENT: Negative for injury, pain, and discharge, Neck: Negative for injury, pain, and swelling, Cardiovascular: Negative for chest pain, palpitations, and edema, Respiratory: Negative for shortness of breath, cough, wheezing, and pleuritic chest pain, Abdomen/GI: Negative for abdominal pain, nausea, vomiting, diarrhea, and constipation, Back: Negative for injury and pain, : Negative for injury, bleeding, discharge, and swelling, MS/Extremity: Negative for injury and deformity, Skin: Negative for injury, rash, and discoloration, Psych: Negative for depression, anxiety, suicide ideation, homicidal ideation, and hallucinations, Allergy/Immunology: Negative for hives, rash, and allergies, Endocrine: Negative for neck swelling, polydipsia, polyuria, polyphagia, and marked weight changes, Hematologic/Lymphatic: Negative for swollen nodes, abnormal bleeding, and unusual bruising. 07:59 Neuro: Positive for headache, Negative for altered mental status, dizziness, gait disturbance, hearing loss, loss of consciousness, numbness, seizure activity, speech changes, syncope, near syncope, tingling, tinnitus, tremor, visual changes, weakness. Exam: 07:59 Constitutional: This is a well developed, well nourished patient who is awake, alert, kdr and in mild distress. Head/Face: Normocephalic, atraumatic. Eyes: Pupils equal round and reactive to light, extra-ocular motions intact. Lids and lashes normal. Conjunctiva and sclera are non-icteric and not injected. Cornea within normal limits. Periorbital areas with no swelling, redness, or edema. Neck: Trachea midline, no thyromegaly or masses palpated, and no cervical lymphadenopathy. Supple, full range of motion without nuchal rigidity, or vertebral point tenderness. No Meningismus. Chest/axilla: Normal chest wall appearance and motion. Nontender with no deformity. No lesions are appreciated. Cardiovascular: Regular rate and rhythm with a normal S1 and S2. No gallops, murmurs, or rubs. Normal PMI, no JVD. No pulse deficits. Respiratory: Lungs have equal breath sounds bilaterally, clear to auscultation and percussion. No rales, rhonchi or wheezes noted. No increased work of breathing, no retractions or nasal flaring. Abdomen/GI: Soft, non-tender, with normal bowel sounds. No distension or tympany. No guarding or rebound. No evidence of tenderness throughout. Back: No spinal tenderness. No costovertebral tenderness. Full range of motion. Skin: Warm, dry with normal turgor. Normal color with no rashes, no lesions, and no evidence of cellulitis. MS/ Extremity: Pulses equal, no cyanosis. Neurovascular intact. Full, normal range of motion. Neuro: Awake and alert, GCS 15, oriented to person, place, time, and situation. Cranial nerves II-XII grossly intact. Motor strength 5/5 in all extremities. Sensory grossly intact. Cerebellar exam normal. Normal gait. Psych: Awake, alert, with orientation to person, place and time. Behavior, mood, and affect are within normal limits. Vital Signs: 07:39 BP 174 / 81; Pulse 70; Resp 16; Temp 97.8(TE); Pulse Ox 97% on R/A; Weight 65.77 kg; hb Height 5 ft. 2 in. (157.48 cm); Pain 10/10; 07:55 BP 151 / 85; Pulse 65; Resp 14; Pulse Ox 98% ; bp 09:00 BP 159 / 74; Pulse 69; Resp 14; Pulse Ox 95% ; bp 10:00 BP 143 / 70; Pulse 61; Resp 14; Pulse Ox 97% ; bp 07:39 Body Mass Index 26.52 (65.77 kg, 157.48 cm) hb MDM: 07:59 Data reviewed: vital signs, nurses notes. kdr 10:16 Patient medically screened. kdr 10:18 ED course: Patient refused LP,. offered admission/transfer and the patient also refused kdr and indicated that her BAKER was improved and that she just wanted to go home. She continued to be stable in the ED with her prior BAKER largely resolved. 01/02 07:57 Order name: CBC with Diff; Complete Time: 09:01 kdr 01/02 07:57 Order name: Chem 7; Complete Time: 09: kdr 01/02 07:57 Order name: CT Head Brain wo Cont; Complete Time: 08:33 kdr Administered Medications: 08:43 Drug: fentaNYL (PF) 25 mcg Route: IVP; Site: right antecubital; bp 09:51 Follow up: Response: Pain is decreased bp 09:35 Drug: TORadol 30 mg Route: IVP; Site: right antecubital; bp 10:24 Follow up: Response: Pain is decreased bp Disposition: 01/02/19 10:16 Discharged to Home. Impression: Headache. - Condition is Stable. - Discharge Instructions: General Headache Without Cause, Migraine Headache. - Prescriptions for Tramadol 50 mg Oral Tablet - take 1 tablet by ORAL route every 8 hours as needed; 12 tablet. - Medication Reconciliation Form, Thank You Letter, Prescription Opioid Use form. - Follow up: Private Physician; When: 2 - 3 days; Reason: If symptoms return, Further diagnostic work-up, Recheck today's complaints, Continuance of care, Re-evaluation by your physician. - Problem is new. - Symptoms have improved. Signatures: Dispatcher [employer] EDRI Anthony Salmeron MD MD [facility] Lacy Regalado RN RN Orlando Broderick RN RN bp Corrections: (The following items were deleted from the chart) 09:51 09:20 LP Consents ordered. kdr bp 09:51 09:20 LP Setup ordered. kdr bp 10:25 10:16 01/02/2019 10:16 Discharged to Home. Impression: Headache. Condition is Stable. bp Forms are Medication Reconciliation Form, Thank You Letter, Antibiotic Education, Prescription Opioid Use. Follow up: Private Physician; When: 2 - 3 days; Reason: If symptoms return, Further diagnostic work-up, Recheck today's complaints, Continuance of care, Re-evaluation by your physician. Problem is new. Symptoms have improved. kdr
[2019-01-02 10:33] VITALS: TEMP 97.8
[2019-01-02 10:38] VITALS: BP 143/70; O2SAT 97
== END 2019-01-02 10:25 | disposition home or self-care (01) ==
LOC: ER 07:24
DX: R51 Headache (principal); Z88.1 Allergy status to other antibiotic agents; Z88.5 Allergy status to narcotic agent; I10 Essential (primary) hypertension
CPT/HCPCS: 36415; 70450; 80048; 85025; 96374; 96375; 99284; J3010

== ENCOUNTER 2019-01-04 16:11 | Observation (INO) | payer OTHER ==
--- OUTSIDE RECORDS SUMMARY | 2019-01-04 16:13 | XMS REPORT | Clinical Summary ---
:1955 Author Organization [facility] Address [address] [place] [address] Care Team Providers Name Role Phone Unavailable [...] Kulkarni, Mrinalini Zade, MD 11/28/2018 Travel after 01/03/2018 Social History Tobacco Use Types Packs/Day Years [...] Taken Blood Pressure 186/77 11/29/2018 11:26 AM MANAGER BATTERY Pulse 65 11/29/2018 11:26 AM MANAGER BATTERY Temperature 35.9 C (96.7 F) 11/29/2018 11:26 AM MANAGER BATTERY Respiratory Rate 18 11/29/2018 11:26 AM MANAGER BATTERY Oxygen Saturation 96% 11/29/2018 11:26 AM MANAGER BATTERY Inhaled Oxygen Concentration - - Weight 66.8 kg (147 lb 3.2 oz) 11/29/2018 3:19 AM MANAGER BATTERY Height 157.5 cm (5' 2") 11/28/2018 12:27 PM MANAGER BATTERY Body Mass Index 26.92 11/29/2018 3:19 AM MANAGER BATTERY Plan of Treatment Not on file Procedures Procedure Name Priority Date/Time Associated Comments Diagnosis REPORT OF PROCEDURE - 12/18/2018 10:00 ENDOSCOPY SCAN AM MANAGER [facility]TERY POCT-GLUCOSE METER Routine 11/29/2018 11:28 Results for this AM MANAGER [employer]TERY procedure are in the results section. POCT-GLUCOSE METER Routine 11/29/2018 6:01 Results for this AM MANAGER [employer]TERY procedure are in the results section. POCT-GLUCOSE METER Routine 11/29/2018 12:06 Results for this AM MANAGER [employer]TERY procedure are in the results section. POCT-GLUCOSE METER Routine 11/28/2018 5:57 Results for this PM MANAGER BATTERY procedure are in the results section. CBC W/PLT COUNT & Routine 11/28/2018 2:23 Results for this AUTO DIFFERENTIAL PM MANAGER [facility]Y procedure are in the results section. LACTIC ACID, VENOUS, Routine 11/28/2018 2:23 Results for this WHOLE BLOOD PM [facility]GER [facility] procedure are in the results section. HEPATIC FUNCTION Routine 11/28/2018 2:23 Results for this PANEL PM MANAGER [facility] procedure are in the results section. HEMOGLOBIN A1C AP Routine 11/28/2018 2:23 Results for this PM MANAGER [employer]Y procedure are in the results section. CBC W/PLT COUNT & Routine 11/28/2018 2:23 Results for this AUTO DIFFERENTIAL PM MANAGER [employer]Y procedure are in the results section. BASIC METABOLIC PANEL Routine 11/28/2018 2:23 Results for this (7) PM MANAGER [employer] procedure are in the results section. POCT-GLUCOSE METER Routine 11/28/2018 12:52 Results for this PM MANAGER [employer] procedure are in the results section. after 01/03/2018 Results EKG-SCANNED (12/18/2018 10:00 AM MANAGER BATTERY) Narrative Performed At POC-Glucose meter (11/29/2018 11:28 AM MANAGER BATTERY)Only the most recent of5 resultswithin the time period is included. POC-Glucose Meter 182 (H)Comment: TESTED AT 70 - 110 mg/dL [facility] [address] [facility] [address] Specimen Blood Performing Organization Address City/State/Zipcode Phone Number [facility] [address] [place], [place] [phone] CENTER CBC with platelet count + automated diff (11/28/2018 2:23 PM MANAGER BATTERY) WBC 4.8 3.5 - 10.5 K/L [facility] RBC 5.32 (H) 3.93 - 5.22 M/L [facility] Hemoglobin 14.1 11.2 - 15.7 GM/DL [facility] Hematocrit 43.0 34.1 - 44.9 % [facility] MCV 80.8 79.4 - 94.8 fL [facility] MCH 26.5 25.6 - 32.2 pg [facility] MCHC 32.8 32.2 - 35.5 GM/DL [facility] RDW 13.7 11.7 - 14.4 % [facility] Platelets 291 150 - 450 K/CU MM [facility] MPV 10.5 9.4 - 12.3 fL [facility] nRBC 0 0 - 0 /100 WBC [facility] % Neutros 57 % [facility] % Lymphs 30 % [facility] % Monos 12 % [facility] % Eos 0 % [facility] % Baso 1 % [facility] # Neutros 2.70 1.56 - 6.13 K/L [facility] # Lymphs 1.44 1.18 - 3.74 K/L [facility] # Monos 0.56 (H) 0.24 - 0.36 K/L [facility] # Eos 0.01 (L) 0.04 - 0.36 K/L [facility] # Baso 0.04 0.01 - 0.08 K/L [facility] Immature Granulocytes-Relative 1 0 - 1 % [facility] Specimen Blood - Arm, Right Performing Organization Address [facility] Phone Number [address] [address] [phone] [place] Lactic acid, venous, whole blood (11/28/2018 2:23 PM MANAGER BATTERY) Lactate, Venous 1.0 0.5 - 2.2 mmol/L [facility] Specimen Blood - Arm, Right Performing Organization Address [facility] Phone Number [address] [address] [phone] [place] Hemoglobin A1c (11/28/2018 2:23 PM MANAGER BATTERY) Hemoglobin A1C 13.0 (H) 4.3 - 6.1 % [facility] Specimen Blood - Arm, Right Performing Organization Address [facility] Phone Number [address] [address] [phone] [place] Hepatic function panel (11/28/2018 2:23 PM MANAGER BATTERY) Protein, Total 6.4 6.0 - 8.3 gm/dL [facility] Albumin 3.9 3.5 - 5.0 g/dL [facility] Total Bilirubin 0.4 0.2 - 1.2 mg/dL [facility] Bilirubin, Direct 0.2 0.1 - 0.5 mg/dL [facility] Alkaline Phosphatase 116 40 - 150 U/L [facility] AST 23 5 - 34 U/L [facility] ALT 38 6 - 55 U/L [facility] Specimen Blood - Arm, Right Performing Organization Address City/[facility] Phone Number [facility] [address] [place], [place] [phone] [place] Basic metabolic panel (11/28/2018 2:23 PM MANAGER BATTERY) Sodium 141 136 - 145 meq/L [facility] Potassium 2.8 (L) 3.5 - 5.1 meq/L [facility] Chloride 110 (H) 98 - 107 meq/L [facility] CO2 21 (L) 22 - 29 meq/L [facility] BUN 13 7 - 21 mg/dL [facility] Creatinine 0.78 0.57 - 1.25 mg/dL [facility] Glucose 306 (H) 70 - 105 mg/dL [facility] Calcium 8.0 (L) 8.4 - 10.2 mg/dL [facility] EGFR Comment: INSUFFICIENT CLINICAL mL/min/1.73 sq m [facility] DATA TO CALCULATE ESTIMATED [facility] CENTER GFR. Specimen Blood - Arm, Right Performing Organization Address City/State/Zipcode Phone Number [facility] [address] [place], [place] [phone] [place] after 01/03/2018 Insurance Payer Benefit Plan / Group Subscriber ID Type Phone Address [employer] - [employer]GD CARE C[employer] HMO/POS/OPEN ACCESS xxxxxxxxx HMO/POS Advance Directives For more information, please contact:[address] [phone] Code Status Date Activated Date Inactivated Comments Full Code 11/28/2018 2:05 PM This code status was determined by: Patient
--- OUTSIDE RECORDS SUMMARY | 2019-01-04 16:14 | XMS REPORT ---
:1955 Author Organization [facility] Address [address] [place] [address] [address]. [address] [place] [address] Care Team Providers Name Role Phone SHAYNE [...] (BEAKER) (test 182 mg/dL 70-110 TESTED AT [address] ofpj=3435) [facility] [address] POCT-GLUCOSE [id number] 06:04:00 Test Item Value Reference Range Comments POC-GLUCOSE METER (BEAKER) 206 mg/dL 70-110 TESTED AT [address] (test dwvy=5082) [facility] [address] POCT-GLUCOSE [id number] 00:17:00 Test Item Value Reference Range Comments POC-GLUCOSE METER (BEAKER) 178 mg/dL 70-110 TESTED AT [address] (test tauc=1004) [facility] [address] POCT-GLUCOSE [id number] 18:20:00 Test Item Value Reference Range Comments POC-GLUCOSE METER (BEAKER) 156 mg/dL 70-110 TESTED AT [address] (test kbwj=8712) [facility] [address] HEMOGLOBIN [id number] 16:48:00 Test Item Value Reference Range Comments HEMOGLOBIN A1C (BEAKER) (test ysmw=706) 13.0 % 4.3-6.1 HEPATIC FUNCTION [id number] 14:55:00 Test Item Value Reference Range Comments TOTAL PROTEIN (BEAKER) (test lnbz=231) 6.4 gm/dL 6.0-8.3 ALBUMIN (BEAKER) (test ybou=4157) 3.9 g/dL 3.5-5.0 BILIRUBIN TOTAL (BEAKER) (test sace=818) 0.4 mg/dL 0.2-1.2 BILIRUBIN DIRECT (BEAKER) (test llfr=198) 0.2 mg/dL 0.1-0.5 ALKALINE PHOSPHATASE (BEAKER) (test qsag=063) 116 U/L 40-150 AST (SGOT) (BEAKER) (test cfkq=022) 23 U/L 5-34 ALT (SGPT) (BEAKER) (test phmk=168) 38 U/L 6-55 BASIC METABOLIC [id number] 14:55:00 Test Item Value Reference Range Comments SODIUM (BEAKER) (test 141 meq/L 136-145 iwbm=875) POTASSIUM (BEAKER) (test 2.8 meq/L 3.5-5.1 kbsd=942) CHLORIDE (BEAKER) (test 110 meq/L 98-107 qfpy=231) CO2 (BEAKER) (test 21 meq/L 22-29 gqjj=643) BLOOD UREA NITROGEN 13 mg/dL 7-21 (BEAKER) (test ityc=283) CREATININE (BEAKER) (test 0.78 mg/dL 0.57-1.25 obmw=239) GLUCOSE RANDOM (BEAKER) 306 mg/dL 70-105 (test odfs=027) CALCIUM (BEAKER) (test 8.0 mg/dL 8.4-10.2 obhj=747) EGFR (BEAKER) (test mL/min/1.73 sq m INSUFFICIENT CLINICAL DATA gzux=1395) TO CALCULATE ESTIMATED GFR. LACTIC ACID, VENOUS, WHOLE [id number] 14:48:00 Test Item Value Reference Range Comments LACTATE BLOOD VENOUS (2) (BEAKER) (test 1.0 mmol/L 0.5-2.2 sedv=2894) CBC W/PLT COUNT & AUTO [id number] 14:38:00 Test Item Value Reference Range Comments WHITE BLOOD CELL COUNT (BEAKER) (test qlma=823) 4.8 K/ L 3.5-10.5 RED BLOOD CELL COUNT (BEAKER) (test kpxs=471) 5.32 M/ L 3.93-5.22 HEMOGLOBIN (BEAKER) (test xsvx=503) 14.1 GM/DL 11.2-15.7 HEMATOCRIT (BEAKER) (test uubp=527) 43.0 % 34.1-44.9 MEAN CORPUSCULAR VOLUME (BEAKER) (test xgdf=822) 80.8 fL 79.4-94.8 MEAN CORPUSCULAR HEMOGLOBIN (BEAKER) (test 26.5 pg 25.6-32.2 fwqa=782) MEAN CORPUSCULAR HEMOGLOBIN CONC (BEAKER) (test 32.8 GM/DL 32.2-35.5 qcjy=333) RED CELL DISTRIBUTION WIDTH (BEAKER) (test 13.7 % 11.7-14.4 bhqi=264) PLATELET COUNT (BEAKER) (test dsiv=659) 291 K/CU MM 150-450 MEAN PLATELET VOLUME (BEAKER) (test afld=043) 10.5 fL 9.4-12.3 NUCLEATED RED BLOOD CELLS (BEAKER) (test 0 /100 WBC 0-0 hztg=011) NEUTROPHILS RELATIVE PERCENT (BEAKER) (test 57 % wwhb=994) LYMPHOCYTES RELATIVE PERCENT (BEAKER) (test 30 % caur=527) MONOCYTES RELATIVE PERCENT (BEAKER) (test 12 % mrxh=277) EOSINOPHILS RELATIVE PERCENT (BEAKER) (test 0 % loxo=023) BASOPHILS RELATIVE PERCENT (BEAKER) (test 1 % bntt=917) NEUTROPHILS ABSOLUTE COUNT (BEAKER) (test 2.70 K/ L 1.56-6.13 cjwd=634) LYMPHOCYTES ABSOLUTE COUNT (BEAKER) (test 1.44 K/ L 1.18-3.74 xzke=085) MONOCYTES ABSOLUTE COUNT (BEAKER) (test 0.56 K/ L 0.24-0.36 hyew=698) EOSINOPHILS ABSOLUTE COUNT (BEAKER) (test 0.01 K/ L 0.04-0.36 gbqn=140) BASOPHILS ABSOLUTE COUNT (BEAKER) (test 0.04 K/ L 0.01-0.08 chpk=189) IMMATURE GRANULOCYTES-RELATIVE PERCENT (BEAKER) 1 % 0-1 (test kvnz=2419) POCT-GLUCOSE [id number] 12:54:00 Test Item Value Reference Range Comments POC-GLUCOSE METER (BEAKER) 322 mg/dL 70-110 TESTED AT [address] (test aplu=4655) [facility] [id number]
--- NOTE | 2019-01-04 17:56 | RAD REPORT ---
EXAM DESCRIPTION: RAD - Chest Single View - 01/04/2019 5:40 pm CLINICAL HISTORY: FEVER Chest pain. COMPARISON: Chest Single View dated 11/28/2018 FINDINGS: Portable technique limits examination quality. The lungs are grossly clear. The heart is upper limit of normal in size. No displaced fractures. IMPRESSION: No acute intrathoracic process suspected.
[2019-01-04 18:39] LABS: Absolute Monocytes 1.3 K/uL (0.1-1.3); Absolute Neutrophil 7.9 K/uL (1.8-8.0); Basophils % 0.7 % (0-1.3); Eosinophils % 0.2 % (0-4.4); Hematocrit 44.3 % (36.0-45.0); Lymphocytes % 24.5 % (15.3-44.8); MPV 9.2 fL (7.6-11.3); Monocytes % 10.7 % (3.3-12.3); RBC Red Blood Cell Count 5.63 M/uL (3.86-4.86)
[2019-01-04 18:51] LABS: Protime INR 1.27
[2019-01-04] MEDS ORDERED: NA CHLORIDE 0.9% 2,000 ML ONE (18:54)
[2019-01-04] MEDS ORDERED: ONDANSETRON 4 MG/2 ML VIAL ONE (18:54)
[2019-01-04] MEDS ORDERED: ACETAMINOPHEN 500 MG TAB ONE (18:54)
[2019-01-04 19:18] LABS: ALT/SGPT 41 U/L (12-78); AST/SGOT 41 U/L (15-37); Albumin 3.7 g/dL (3.4-5.0); Alkaline Phosphatase 126 U/L (45-117); BUN Blood Urea Nitrogen 10 mg/dL (7-18); Bicarbonate 26 mmol/L (21-32); Bilirubin Direct 0.1 mg/dL (0-0.2); Bilirubin Total 0.7 mg/dL (0.2-1.0); CKMB Creatine Kinase MB < 1.0 ng/mL (0.3-3.6); Creatine Phosphokinase 102 U/L (26-192); Glucose Level 291 mg/dL (74-106); Lipase 97 U/L (73-393); Potassium 3.6 mmol/L (3.5-5.1); Protein, Total 8.1 g/dL (6.4-8.2); Sodium Level 130 mmol/L (136-145); Troponin (Emerg Dept Use Only) 0.04 ng/mL (0.0-0.045)
[2019-01-04 20:16] LABS: Urine Blood TRACE (NEG); Urine Glucose 2+ (NEG); Urine Protein 2+ (NEG); Urine Specific Gravity 1.015 (1.005-1.030)
[2019-01-04 20:16] LABS: Urine Bacteria 20-50 /HPF (<20); Urine Culture Reflex Order NOT NEEDED; Urine Mucus MOD /HPF (NONE SEEN)
[2019-01-04] MEDS ORDERED: NA CHLORIDE 0.9% 100 ML IV ONE (20:17)
[2019-01-04] MEDS ORDERED: CEFTRIAXONE/SWI 1gm 2 GM/20 ML SYR ONE (20:17)
[2019-01-04] MEDS ORDERED: VANCOMYCIN 1 GM/250 ML BAG ONE (20:17)
--- NOTE | 2019-01-04 20:44 | RAD REPORT ---
EXAM DESCRIPTION: CT - Head Brain Wo Cont - 01/04/2019 8:35 pm CLINICAL HISTORY: FEVER Headache COMPARISON: Head Brain Wo Cont dated 01/02/2019; HEAD BRAIN W O CONTRAST dated 01/14/2010 TECHNIQUE: All CT scans are performed using dose optimization technique as appropriate and may inclu de automated exposure control or mA/KV adjustment according to patient size. FINDINGS: No intracranial hemorrhage, hydrocephalus or extra-axial fluid collection.No areas of brai n edema or evidence of midline shift. Mild mucosal thickening affects the sphenoid sinus. Mild fluid is seen in the right mastoid air cell. The calvarium is intact. IMPRESSION: No acute intracranial abnormality. Mild mucosal thickening of the sphenoid sinus and mild fluid in the right mastoid air cell.
--- NOTE | 2019-01-04 21:09 | ER ---
Nurse's Notes [facility] Name: Marlee Hoang Age: 63 yrs Sex: Female : 1955 Arrival Date: 01/04/2019 Time: 16:12 Bed 5 Private MD: None, None Diagnosis: Other specified sepsis;Urinary tract infection, site not specified Presentation: 01/04 16:50 Presenting complaint: Pt's daughter states "we were seen here on Saturday for a headache aa5 but she was discharged by Dr. Salmeron with Tramadol". Pt's daughter states "she is really weak and she is not eating and the right side of her face looks swollen". Pt's daughter states "Dr. Salmeron wanted to do a spinal tab but she refused". 16:50 Acuity: LORI 2 aa5 16:50 Method Of Arrival: Wheelchair aa5 16:50 Transition of care: patient was not received from another setting of care. Onset of aa5 symptoms was January 2019. Risk Assessment: Do you want to hurt yourself or someone else? Patient reports no desire to harm self or others. Initial Sepsis Screen: Does the patient meet any 2 criteria? Temp <36.0*C (96.8*F)) or > 38.3*C (100.9*F). HR > 90 bpm. Yes Does the patient have a suspected source of infection? Yes:. Care prior to arrival: None. Triage Assessment: 16:50 General: Appears distressed, uncomfortable, ill, obese, Behavior is cooperative, bp appropriate for age, anxious. Pain: Complains of pain in head. EENT: No deficits noted. Neuro: Level of Consciousness is alert, obeys commands, lethargic, Oriented to person, place, time, situation, Appropriate for age. Cardiovascular: No deficits noted. Respiratory: Airway is patent Respiratory effort is even, Respiratory pattern is regular. Historical: - Allergies: 16:50 Codeine; aa5 16:50 Levaquin; aa5 16:50 Morphine; aa5 - PMHx: 16:50 Hypertension; aa5 - PSHx: 16:50 Hysterectomy; aa5 - Immunization history:: Adult Immunizations not up to date. - Social history:: Smoking status: Patient/guardian denies using tobacco. - Ebola Screening: : No symptoms or risks identified at this time. Screenin:40 Abuse screen: Denies threats or abuse. Denies injuries from another. Nutritional bp screening: No deficits noted. Tuberculosis screening: No symptoms or risk factors identified. Fall Risk None identified. Assessment: 17:00 General: Appears distressed, uncomfortable, ill, obese, Behavior is cooperative, bp appropriate for age, anxious. Pain: Complains of pain in head. Neuro: Level of Consciousness is alert, obeys commands, lethargic, Oriented to person, place, time, situation, Appropriate for age. Cardiovascular: Rhythm is sinus tachycardia. Respiratory: Airway is patent Respiratory effort is even, unlabored, Respiratory pattern is regular, symmetrical. GI: No signs and/or symptoms were reported involving the gastrointestinal system. : No signs and/or symptoms were reported regarding the genitourinary system. EENT: No deficits noted. Derm: No deficits noted. Musculoskeletal: Circulation, motion, and sensation intact. Range of motion: intact in all extremities. 19:00 Reassessment: IVF INFUSING. UOP AND LAB RESULTS PENDING. VS STABLE ON MONITOR. bp 19:35 General: Appears uncomfortable, ill, Behavior is cooperative, appropriate for age. ea Pain: Complains of pain in head. Neuro: Level of Consciousness is awake, alert, obeys commands, Oriented to person, place, time, situation. Cardiovascular: Patient's skin is warm and dry. Respiratory: Airway is patent Respiratory effort is even, unlabored, Respiratory pattern is regular, symmetrical. Derm: Skin is pale, Skin temperature is warm. Musculoskeletal: Circulation, motion, and sensation intact. 20:00 Reassessment: Patient and/or family updated on plan of care and expected duration. Pain ea level reassessed. Pt resting with eyes closed, respirations even and unlabored. Chest expansions even and symmetrical. No s/s of pain or discomfort noted at this time. 21:35 Reassessment: Patient and/or family updated on plan of care and expected duration. Pain ea level reassessed. Pt resting with eyes closed, respirations even and unlabored. Chest expansions even and symmetrical. No s/s of pain or discomfort noted at this time. 22:37 Reassessment: Patient and/or family updated on plan of care and expected duration. Pain ea level reassessed. Pt resting with eyes closed, respirations even and unlabored, chest expansions even and symmetrical. No s/s of pain or discomfort noted at this time. Daughter at bedside. 23:00 Reassessment: Patient and/or family updated on plan of care and expected duration. Pain ea level reassessed. Awaiting director of public relations back from receiving nurse on fourth floor. Pt resting with eyes closed, respirations even and unlabored. Chest expansions even and symmetrical. 23:13 Reassessment: Patient and/or family updated on plan of care and expected duration. Pain ea level reassessed. Report called to Jimmy STUART on fourth floor. Vital Signs: 16:58 BP 126 / 88; Pulse 126; Resp 20 S; Temp 101.2(TE); Pulse Ox 96% on R/A; Weight 66.68 kg aa5 (R); Pain 0/10; 18:00 BP 151 / 90; Pulse 106; Resp 20; Pulse Ox 96% ; bp 19:00 BP 143 / 70; Pulse 100; Resp 20; Pulse Ox 95% ; bp 20:00 BP 143 / 72; Pulse 92; Resp 17; Pulse Ox 98% ; rr5 20:50 BP 139 / 60; Pulse 94; Resp 16; Pulse Ox 99% ; rr5 21:10 BP 127 / 71; Pulse 89; Resp 17; Temp 99(O); Pulse Ox 96% ; rr5 22:24 BP 138 / 70; Pulse 84; Resp 18; Pulse Ox 96% on R/A; ea 23:00 BP 139 / 66; Pulse 81; Resp 18; Pulse Ox 95% ; ea ED Course: 16:12 Patient arrived in ED. mr 16:13 None, None is Private Physician. mr 16:50 Arm band placed on. aa5 17:02 Triage completed. aa5 17:07 Obey Hernandez PA is PHCP. jr8 17:07 Oscar Corral MD is Attending Physician. jr8 17:07 PHCP role handed off by Obey Hernandez PA cp 17:07 Oscar Garcia PA is PHCP. cp 17:07 PHCP role handed off by Oscar Garcia PA jr8 17:07 Obey Hernandez PA is PHCP. jr8 17:09 Dann Frey, SADE is Primary Nurse. jl7 17:12 Oscar Garcia PA is PHCP. jr8 17:37 X-ray completed. Portable x-ray completed in exam room. Patient tolerated procedure la2 well. 17:40 Chest Single View XRAY In Process Unspecified. EDMS 18:00 Inserted saline lock: 20 gauge in right antecubital area, using aseptic technique. bp Blood collected. 18:40 Patient has correct armband on for positive identification. Bed in low position. Call bp light in reach. Side rails up X2. Adult w/ patient. 20:36 CT Stone Protocol In Process Unspecified. EDMS 20:36 CT Head Brain wo Cont In Process Unspecified. EDMS 21:06 Glen Garcia MD is Hospitalizing Provider. cp 22:33 No provider procedures requiring assistance completed. Patient admitted, IV remains in ea place. Administered Medications: 18:54 Drug: Acetaminophen 1000 mg Route: PO; bp 22:21 Follow up: Response: No adverse reaction; Temperature is decreased ea 18:54 Drug: NS 0.9% (30 ml/kg) 30 ml/kg Route: IV; Rate: bolus; Site: right antecubital; bp 22:22 Follow up: Response: No adverse reaction; IV Status: Completed infusion ea 18:54 Drug: Zofran 4 mg Route: IVP; Site: right antecubital; bp 20:00 Follow up: Response: No adverse reaction; Nausea is decreased ea 20:51 Drug: Rocephin - (cefTRIAXone) 2 grams Route: IVPB; Infused Over: 30 mins; Site: right rr5 antecubital; 21:25 Follow up: Response: No adverse reaction; IV Status: Completed infusion; IV Intake: rr5 100ml 21:30 Dru grams of (vancoMYCIN 1 grams, NS 0.9% 250 ml) Route: IVPB; Infused Over: 2 hrs; rr5 Site: right antecubital; 23:16 Follow up: Response: No adverse reaction; IV Status: Completed infusion; IV Intake: ea 250ml Point of Care Testing: Blood Glucose: 16:55 Blood Glucose: 349 mg/dL; aa5 22:14 Blood Glucose: 190 mg/dL; ea Ranges: Intake: 21:25 IV: 100ml; Total: 100ml. rr5 23:16 IV: 250ml; Total: 350ml. ea Outcome: 21:07 Decision to Hospitalize by Provider. cp 22:33 Instructed on the need for admit. ea 23:12 Admitted to Med/surg accompanied by tech, room 420, with chart, Report called to Jimmy chaney RN 23:12 Condition: stable 23:23 Patient left the ED. ritu Signatures: Dispatcher [employer] Sofia Jones, Mila, RN RN aa5 Obey Hernandez PA PA jr8 Oscar Garcia PA PA cp Leal, Jahala RN RN jl7 Freda Mancini RN RN Jennifer Mathur2 Orlando Broderick RN RN Guero Xiong, RN RN rr5 Corrections: (The following items were deleted from the chart) 17:02 16:55 Presenting complaint: Pt's daughter states "we were seen here on Saturday for a aa5 headache but she was discharged by Dr. Salmeron with Tramadol". Pt's daughter states "she is really weak and she is not eating and the right side of her face looks swollen" aa5 17:03 16:50 Initial Sepsis Screen: Does the patient meet any 2 criteria? No. Patient's aa5 initial sepsis screen is negative. Does the patient have a suspected source of infection? No. Patient's initial sepsis screen is negative. aa5 17:07 16:50 Presenting complaint: Pt's daughter states "we were seen here on Saturday for a aa5 headache but she was discharged by Dr. Salmeron with Tramadol". Pt's daughter states "she is really weak and she is not eating and the right side of her face looks swollen" aa5 17:40 16:50 Initial Sepsis Screen: Does the patient meet any 2 criteria? Temp <36.0*C aa5 (96.8*F)) or > 38.3*C (100.9*F). HR > 90 bpm. Yes Does the patient have a suspected source of infection? No. Patient's initial sepsis screen is negative. aa5 21:02 20:00 Reassessment: Patient and/or family updated on plan of care and expected ea duration. Pain level reassessed. Patient is alert, oriented x 3, equal unlabored respirations, skin warm/dry/pink. ea
--- NOTE | 2019-01-04 21:09 | EDPHYS ---
Physician Documentation [facility] Name: Marlee Hoang Age: 63 yrs Sex: Female : 1955 Arrival Date: 01/04/2019 Time: 16:12 Bed 5 Private MD: None, None ED Physician Oscar Corral HPI: 01/04 17:30 This 63 yrs old Female presents to ER via Wheelchair with complaints of Fever, cp Decreased Appetite, Weakness. 17:30 The patient reports fever, with an emergency department temperature of 101.2 degrees cp Fahrenheit. Onset: The symptoms/episode began/occurred today. Historical: - Allergies: 16:50 Codeine; aa5 16:50 Levaquin; aa5 16:50 Morphine; aa5 - PMHx: 16:50 Hypertension; aa5 - PSHx: 16:50 Hysterectomy; aa5 - Immunization history:: Adult Immunizations not up to date. - Social history:: Smoking status: Patient/guardian denies using tobacco. - Ebola Screening: : No symptoms or risks identified at this time. ROS: 17:35 Constitutional: Positive for fever, poor PO intake, Negative for body aches. cp 17:35 Eyes: Negative for injury, pain, redness, and discharge. cp 17:35 ENT: Negative for drainage from ear(s), ear pain, sinus congestion, sore throat, cp difficulty swallowing, difficulty handling secretions. 17:35 Neck: Negative for stiffness. 17:35 Cardiovascular: Negative for chest pain, edema, palpitations. 17:35 Respiratory: Negative for cough, shortness of breath, wheezing. 17:35 Abdomen/GI: Negative for abdominal pain, nausea, vomiting, diarrhea, constipation. 17:35 Skin: Negative for cellulitis, rash. cp 17:35 Neuro: Positive for general weakness, Negative for altered mental status, headache. 17:35 All other systems are negative. Exam: 17:42 Constitutional: The patient appears in no acute distress, alert, awake, cp non-diaphoretic, well developed, well nourished, obviously ill. 17:42 Eyes: Pupils equal round and reactive to light, extra-ocular motions intact. Lids and cp lashes normal. Conjunctiva and sclera are non-icteric and not injected. Cornea within normal limits. Periorbital areas with no swelling, redness, or edema. 17:42 Head/face: Noted is swelling, that is mild, of the right cheek and right forehead. 17:45 ENT: External ear(s): are unremarkable, Ear canal(s): are normal, clear, TM's: bulging, cp is not appreciated, bilaterally, dullness, bilaterally, erythema, is not appreciated, bilaterally, Nose: is normal, Mouth: Lips: dry, Oral mucosa: dry, Posterior pharynx: Airway: no evidence of obstruction, patent, Tonsils: are normal in appearance, Uvula: midline, swelling, is not appreciated, erythema, is not appreciated, exudate, is not appreciated, Voice: is normal. 17:45 Neck: ROM/movement: pain, with any movement, minimal. limited range of motion, is not appreciated, Meningeal signs: are not present, nuchal rigidity, is not appreciated, Lymph nodes: no appreciated lymphadenopathy. 17:45 Chest/axilla: Inspection: normal, Palpation: is normal, no crepitus, no tenderness. 17:45 Cardiovascular: Rate: tachycardic, Rhythm: regular, Heart sounds: murmur, Edema: is not appreciated, JVD: is not appreciated. 17:45 Respiratory: the patient does not display signs of respiratory distress, Respirations: cp normal, no use of accessory muscles, no retractions, no splinting, no tachypnea, labored breathing, is not present, Breath sounds: are clear throughout, no decreased breath sounds, no stridor, no wheezing. 17:45 Abdomen/GI: Inspection: abdomen appears normal, Bowel sounds: active, all quadrants, Palpation: soft, in all quadrants, rebound tenderness, is not appreciated, voluntary guarding, is not appreciated, involuntary guarding, is not appreciated. 17:45 Skin: cellulitis, is not appreciated, no rash present. 17:45 Neuro: Orientation: to person, place \T\ time. Mentation: is normal, Cerebellar function: is grossly normal, Motor: moves all fours, strength is normal, Sensation: is normal, Gait: is steady. 20:05 ECG was reviewed by the Attending Physician. cp Vital Signs: 16:58 BP 126 / 88; Pulse 126; Resp 20 S; Temp 101.2(TE); Pulse Ox 96% on R/A; Weight 66.68 kg aa5 (R); Pain 0/10; 18:00 BP 151 / 90; Pulse 106; Resp 20; Pulse Ox 96% ; bp 19:00 BP 143 / 70; Pulse 100; Resp 20; Pulse Ox 95% ; bp 20:00 BP 143 / 72; Pulse 92; Resp 17; Pulse Ox 98% ; rr5 20:50 BP 139 / 60; Pulse 94; Resp 16; Pulse Ox 99% ; rr5 21:10 BP 127 / 71; Pulse 89; Resp 17; Temp 99(O); Pulse Ox 96% ; rr5 22:24 BP 138 / 70; Pulse 84; Resp 18; Pulse Ox 96% on R/A; ea 23:00 BP 139 / 66; Pulse 81; Resp 18; Pulse Ox 95% ; ea MDM: 17:07 Patient medically screened. jr8 18:00 Differential diagnosis: viral Infection, bacterial infection, pneumonia UTI, cp gastroenteritis, meningitis, sepsis. 21:15 Data reviewed: vital signs, nurses notes, lab test result(s), EKG, radiologic studies, cp CT scan, plain films. 21:15 Counseling: I had a detailed discussion with the patient and/or guardian regarding: the cp historical points, exam findings, and any diagnostic results supporting the discharge/admit diagnosis, lab results, radiology results, the need for further work-up and treatment in the hospital. Response to treatment: the patient's symptoms have markedly improved after treatment, and as a result, I will admit patient. 21:15 Physician consultation: Glen Garcia MD was contacted at 21:15, regarding admission, cp to the medical/surgical unit. patient's condition. 01/04 17:23 Order name: Urine Culture cp 01/04 17:23 Order name: Basic Metabolic Panel; Complete Time: 19:20 cp 01/04 19:20 Interpretation: Normal except: NA 130; CL 96; GLUC 291; GFR 61. cp / 17:23 Order name: Blood Culture Adult (2) cp 01/04 17:23 Order name: CBC with Diff; Complete Time: 19: cp 01/04 19:04 Interpretation: Normal except: WBC 12.4; RBC 5.63; HGB 15.1; MCV 78.7; MCH 26.8. cp 01/04 17:23 Order name: Ckmb; Complete Time: 19:20 cp 02/03 17:23 Order name: CPK; Complete Time: 19:20 cp 02/03 17:23 Order name: Lactate; Complete Time: 19:20 cp 02/03 17:23 Order name: LFT's; Complete Time: 19:20 cp 02/03 19:20 Interpretation: Normal except: AST 41; ALK 126; GLOB 4.4; A/G 0.8. cp 02/03 17:23 Order name: Lipase; Complete Time: 19:20 cp 02/03 17:23 Order name: Procalcitonin; Complete Time: 19:27 cp 02/03 19:28 Interpretation: Reviewed. cp 02/03 17:23 Order name: Protime (+inr); Complete Time: 19:03 cp 02/ 19:28 Interpretation: Reviewed. cp 02/ 17:23 Order name: Ptt, Activated; Complete Time: 19:03 cp 02/03 17:23 Order name: Troponin (emerg Dept Use Only); Complete Time: 19:20 cp 02/ 19:49 Interpretation: TROPED 0.04; Reviewed. cp 02/03 17:23 Order name: Urine Microscopic Only; Complete Time: 20:19 cp 02/03 20:20 Interpretation: Normal except: UWBC 20-50; URBC 10-20; UBACT 20-50; SQEPI 10-20. cp 02/03 17:23 Order name: Chest Single View XRAY; Complete Time: 18:00 cp 02/03 18:00 Interpretation: Report review. cp 02/03 17:23 Order name: Influenza Screen (a \T\ B); Complete Time: 19:03 cp 02/03 17:23 Order name: Strep; Complete Time: 19:03 cp 02/03 19:03 Order name: Throat Culture EDMS 02 19:57 Order name: CT Stone Protocol; Complete Time: 21:36 elías 01/04 19:58 Order name: Urine Dipstick--Ancillary (enter results); Complete Time: 20:19 mw2 01/04 20:20 Interpretation: Normal except: UGLUC 2+; UKET 1+; UBLD TRACE; UPROT 2+; UESTR TRACE. cp 02/ 19:59 Order name: CT Head Brain wo Cont; Complete Time: 20:57 cp 01/04 22:19 Order name: CBC with Automated Diff EDMS 01/04 22:19 Order name: CBC with Automated Diff EDMS 01/04 22:19 Order name: Comprehensive Metabolic Panel EDMS 01/04 22:19 Order name: Comprehensive Metabolic Panel EDMS 01/04 17:23 Order name: Accucheck; Complete Time: 22:48 cp 01/04 17:23 Order name: Cardiac monitoring; Complete Time: 18:38 cp 01/04 17:23 Order name: EKG - Nurse/Tech; Complete Time: 21:05 cp 01/04 17:23 Order name: IV Saline Lock - Large Bore; Complete Time: 18:37 cp 01/04 17:23 Order name: Labs collected and sent; Complete Time: 18:38 cp 01/04 17:23 Order name: O2 Per Protocol; Complete Time: 18:38 cp 01/04 17:23 Order name: O2 Sat Monitoring; Complete Time: 18:38 cp 01/04 17:23 Order name: Urine Dipstick-Ancillary (obtain specimen); Complete Time: 22:21 cp 01/04 21:37 Order name: Accucheck Blood Glucose: every hour times 2; Complete Time: 22:13 cp 01/04 22:19 Order name: CONS Pharmacy Consult EDMS 01/04 22:19 Order name: NPO EDMS EC:05 Rate is 95 beats/min. Rhythm is regular. MA interval is normal. QRS interval is normal. cp QT interval is prolonged. Interpreted by me. Reviewed by me. Administered Medications: 18:54 Drug: Acetaminophen 1000 mg Route: PO; bp 22:21 Follow up: Response: No adverse reaction; Temperature is decreased ea 18:54 Drug: NS 0.9% (30 ml/kg) 30 ml/kg Route: IV; Rate: bolus; Site: right antecubital; bp 22:22 Follow up: Response: No adverse reaction; IV Status: Completed infusion ea 18:54 Drug: Zofran 4 mg Route: IVP; Site: right antecubital; bp 20:00 Follow up: Response: No adverse reaction; Nausea is decreased ea 20:51 Drug: Rocephin - (cefTRIAXone) 2 grams Route: IVPB; Infused Over: 30 mins; Site: right rr5 antecubital; 21:25 Follow up: Response: No adverse reaction; IV Status: Completed infusion; IV Intake: rr5 100ml 21:30 Dru grams of (vancoMYCIN 1 grams, NS 0.9% 250 ml) Route: IVPB; Infused Over: 2 hrs; rr5 Site: right antecubital; 23:16 Follow up: Response: No adverse reaction; IV Status: Completed infusion; IV Intake: ea 250ml Point of Care Testing: Blood Glucose: 16:55 Blood Glucose: 349 mg/dL; aa5 22:14 Blood Glucose: 190 mg/dL; ea Ranges: Critical Glucose Levels:Adult <50 mg/dl or >400 mg/dl <40 mg/dl or >180 mg/dl Disposition: 01/05 07:29 Co-signature as Attending Physician, Oscar Corral MD I agree with the assessment and elías plan of care. Disposition: 01/04/19 21:07 Hospitalization ordered by Glen Garcia for Inpatient Admission. Preliminary diagnosis are Other specified sepsis, Urinary tract infection, site not specified. - Bed requested for Telemetry/MedSurg (Inpatient). - Status is Inpatient Admission. ea - Condition is Stable. - Problem is new. - Symptoms have improved. UTI on Admission? Yes Signatures: Dispatcher [employer] EDMS Aline Henry RN RN mw Anderson, Corey, MD MD cha Calderon, Audri, RN RN aa5 Obey Hernandez PA PA jr8 Oscar Garcia PA PA cp Antunez, Elena, Orlando Mullen RN, ea, SADE RN Guero Xiong, RN RN rr5 Corrections: (The following items were deleted from the chart) 01/04 22:19 21:07 Hospitalization Ordered by Glen Garcia MD for Inpatient Admission. Preliminary diagnosis is Other specified sepsis; Urinary tract infection, site not specified. Bed requested for Telemetry/MedSurg (Inpatient). Status is Inpatient Admission. Condition is Stable. Problem is new. Symptoms have improved. UTI on Admission? Yes. cp 23:23 22:19 01/04/2019 21:07 Hospitalization Ordered by Glen Garcia MD for Inpatient ea Admission. Preliminary diagnosis is Other specified sepsis; Urinary tract infection, site not specified. Bed requested for Telemetry/MedSurg (Inpatient). Status is Inpatient Admission. Condition is Stable. Problem is new. Symptoms have improved. UTI on Admission? Yes.
--- NOTE | 2019-01-04 21:17 | RAD REPORT ---
EXAM DESCRIPTION: CT - Stone Protocol - 01/04/2019 8:35 pm CLINICAL HISTORY: Flank pain. Flank pain;Fever COMPARISON: Abdomen Pelvis W Contrast dated 11/28/2018 TECHNIQUE: Axial images were obtained without oral or IV contrast. Lack of contrast limits solid org an and vascular assessment. The [id number] spans the entirety of the system partially obscuring uppermost abdomen and lung bases. Coronal reformatted images were obtained and reviewed. All CT scans are performed using dose optimization technique as appropriate and may include automated exposure control or mA/KV adjustment according to patient size. FINDINGS: The lower lung kulkrani are clear. Cholelithiasis. Imaged portions of the liver and spleen show no suspicious findings on non-contrast imaging. The panc reas and adrenal glands are normal. No pathologic lymphadenopathy in the abdomen or pelvis. No urinary tract stones or obstructive uropathy. No bowel obstruction, free air, free fluid or abscess. Normal appendix noted.Moderate stool is presen t in the rectosigmoid colon. No significant bony abnormality. IMPRESSION: No urinary tract stones or obstructive uropathy. Cholelithiasis.
[2019-01-04] MEDS ORDERED: MORPHINE 4 MG/ML SYR IV PRN (22:14)
[2019-01-04] MEDS ORDERED: ONDANSETRON 4 MG/2 ML VIAL IV PRN (22:14)
[2019-01-05 00:04] VITALS: BMI 26.8
[2019-01-05] MEDS: NA CHLORIDE 0.9% 1,000 ML IV SCH ×3 (00:33→20:44)
[2019-01-05 00:58] VITALS: O2SAT 95
[2019-01-05] MEDS ORDERED: FENTANYL CITR 100 MCG/2 ML IV PRN (02:27)
[2019-01-05] MEDS ORDERED: HYDROMORPHONE HCL 1 MG/ML INJ IV ONE (04:34)
[2019-01-05] MEDS ORDERED: CEFTRIAXONE 1 GM/NS 50 ML 1 GM/50 ML BAG IV SCH ×2 (06:00→09:00)
[2019-01-05] MEDS ORDERED: DEXAMETHASONE 10 MG/ML VIAL IV ONE (06:49)
[2019-01-05 07:20] LABS: ALT/SGPT 41 U/L (12-78); AST/SGOT 27 U/L (15-37); Albumin 3.4 g/dL (3.4-5.0); Alkaline Phosphatase 112 U/L (45-117); BUN Blood Urea Nitrogen 5 mg/dL (7-18); Bicarbonate 25 mmol/L (21-32); Bilirubin Total 0.5 mg/dL (0.2-1.0); Glucose Level 226 mg/dL (74-106); Potassium 3.3 mmol/L (3.5-5.1); Protein, Total 7.2 g/dL (6.4-8.2); Sodium Level 137 mmol/L (136-145)
[2019-01-05] MEDS ORDERED: glyBURIDE 2.5 MG TAB PO SCH (08:00)
[2019-01-05] MEDS ORDERED: DEXAMETHASONE 4 MG/ML VIAL IV ONE (08:00)
[2019-01-05] MEDS ORDERED: INFLUENZA VACCINE (for 3y+) 0.5 ML DOSE IMVAC ONE (08:00)
[2019-01-05 08:16] LABS: Absolute Lymphocytes (CBC) 2.7 K/uL (0.7-4.9); Absolute Monocytes 0.8 K/uL (0.1-1.3); Absolute Neutrophil 8.1 K/uL (1.8-8.0); Basophils % 1.3 % (0-1.3); Eosinophils % 0.4 % (0-4.4); Hematocrit 39.7 % (36.0-45.0); Lymphocytes % 23.2 % (15.3-44.8); MPV 8.7 fL (7.6-11.3); Monocytes % 6.5 % (3.3-12.3); RBC Red Blood Cell Count 4.95 M/uL (3.86-4.86)
[2019-01-05] MEDS: AMLODIPINE 5 MG TAB PO SCH (08:33)
[2019-01-05] MEDS ORDERED: LACTULOSE 20 GM/30 ML UCUP PO PRN (09:06)
--- NOTE | 2019-01-05 09:25 | EKG ---
Test Date: 2019-01-04 Test Time: 19:58:08 [employer] Director: ROBSON MEASUREMENT RESULTS: Intervals: Rate: 95 MO: 152 QRSD: 80 QT: 394 QTc: 495 [place]: P: 61 MO: 152 QRS: 49 T: -1 INTERPRETIVE STATEMENTS: Sinus rhythm with occasional premature ventricular complexes ST & T wave abnormality, consider inferior ischemia Prolonged QT Abnormal ECG Compared to ECG 11/28/2018 07:33:26 Ventricular premature complex(es) now present ST (T wave) deviation still present Possible ischemia still present Electronically Signed On 01-05-19 09:24:42 PV DESIGN ENGINEER by [place]
--- NOTE | 2019-01-05 09:39 | P.HP ---
Certification for Inpatient Patient admitted to: Observation With expected LOS: <2 Midnights Patient will require the following post-hospital care: None Practitioner: I am a practitioner with admitting privileges, knowledge of patient current condition, hospital course, and medical plan of care. Services: Services provided to patient in accordance with Admission requirements found in Title 42 Section 412.3 of the Code of Federal Regulations Patient History Date of Service: 01/04/19 Reason for admission: UTI with sepsis History of Present Illness: Patient is a 63-year-old female who came into the hospital with some confusion. She had not been feeling well and had abdominal pain in lower back pain. Her workup in the ER revealed a urinary tract infection with leukocytosis. Patient was started on IV antibiotics. Patient was given IV hydration. She was admitted to the hospital for further workup. She has been in the hospital for the past week for a questionable small bowel obstruction. She says she was transferred to [place] for further treatment but was discharged as her small-bowel obstruction resolved. She has been at home for the last couple of days and her symptoms worsen. She had dysuria and suprapubic tenderness. She also had lower abdominal pain. She came to the hospital for evaluation and was found to have a UTI with leukocytosis. She was also confused in with generalized weakness. She was admitted to the hospital for IV hydration and IV antibiotic therapy. Allergies levofloxacin [From Levaquin] Allergy (Verified 01/05/19 00:30) Itching morphine Allergy (Verified 01/05/19 04:35) Low BLood pressure codeine Adverse Reaction (Verified 01/05/19 04:35) Low blood pressure Home Medications: Amlodipine Besylate [Norvasc] 5 mg PO DAILY 01/05/19 Metformin HCl [Glucophage] 50 mg PO DAILY WITH BREAKFAST 01/05/19 glyBURIDE [Glyburide] 2.5 mg PO DAILY WITH BREAKFAST 01/05/19 - Past Medical/Surgical History Has patient received pneumonia vaccine in the past: No Diabetic: Yes -: HTN -: Diabetics -: Hysterectomy - Family History Father Family History: Reviewed- Non-Contributory - Social History Smoking Status: Never smoker Alcohol use: No CD- Drugs: No Caffeine use: Yes Place of Residence: Home Review of Systems 10-point ROS is otherwise unremarkable Physical Examination - Vital Signs Temperature: 100.9 F Blood Pressure: 155/79 Pulse: 105 Respirations: 20 Pulse Ox (%): 95 - Physical Exam General: Alert, In no apparent distress, Oriented x3 HEENT: Atraumatic, PERRLA, Mucous membr. moist/pink, EOMI, Sclerae nonicteric Neck: Supple, 2+ carotid pulse no bruit, No LAD, Without JVD or thyroid abnormality Respiratory: Clear to auscultation bilaterally, Normal air movement Cardiovascular: Regular rate/rhythm, Normal S1 S2, No murmurs Gastrointestinal: Normal bowel sounds, Soft and benign, Tenderness ( Suprapubic ) Musculoskeletal: Tenderness ( lower back) Integumentary: No rashes Neurological: Normal gait, Normal speech, Normal strength at 5/5 x4 extr, Normal tone, Sensation intact, Cranial nerves 3-12 intact, Normal affect Lymphatics: No axilla or inguinal lymphadenopathy - Studies Laboratory Data (last 24 hrs) 01/04/19 18:15: PT 15.0 H, INR 1.27, APTT 32.8 01/04/19 18:15: WBC 12.4 H, Hgb 15.1 H, Hct 44.3, Plt Count 236 01/04/19 18:15: Sodium 130 L, Potassium 3.6, BUN 10, Creatinine 0.92, Glucose 291 H, Total Bilirubin 0.7, AST 41 H, ALT 41, Alkaline Phosphatase 126 H, Lipase 97 Microbiology Data (last 24 hrs): 01/04/19 18:15 Nasopharnyx Influenza Type A Antigen Screen - Final 01/04/19 18:15 Nasopharnyx Influenza Type B Antigen Screen - Final 01/04/19 18:15 Throat Group A Streptococcus Rapid Screen - Final Assessment & Plan - Problems (Diagnosis) (1) UTI (urinary tract infection) Current Visit: Yes Status: Acute (2) Sepsis Current Visit: Yes Status: Acute (3) Abdominal pain Current Visit: Yes Status: Acute (4) Low back pain Current Visit: Yes Status: Acute - Plan Plan: 1. IV fluids and IV antibiotics 2. await urine cultures 3. physical therapyconsultation 4. Pain control 5. monitor hemodynamics closely 6. monitor labs and renal function closely 7. GI and DVT prophylaxis Discharge Plan: Home Plan to discharge in: 48 Hours - Advance Directives Does patient have a Living Will: No Does patient have a Durable POA for Healthcare: No - Code Status/Comfort Care Code Status Assessed: Yes Code Status: Full Code Critical Care: No Time Spent Managing PTS Care (In Minutes): 45
[2019-01-05] MEDS: CEFTRIAXONE/SWI 1gm 1 GM/10 ML SYR IV SCH ×2 (09:45→20:45)
[2019-01-05 09:59] LABS: Thyroid Stimulating Hormone 0.241 uIU/mL (0.360-3.740)
[2019-01-05] MEDS ORDERED: D50W 25 GM/50 ML SYRINGE IV PRN (12:28)
[2019-01-05] MEDS ORDERED: GLUCAGON 1 MG/VIAL IM PRN (12:28)
[2019-01-05] MEDS: INSULIN -REGULAR HUMAN 50 UNIT/0.5 ML ML SQ SCH ×3 (13:02→20:44)
[2019-01-05] MEDS ORDERED: ENOXAPARIN 30 MG/0.3 ML SQ SCH (17:00)
[2019-01-05] MEDS: ACETAMINOPHEN 500 MG TAB PO PRN (17:04)
--- NOTE | 2019-01-05 17:54 | P.PN ---
Subjective Date of Service: 01/05/19 Primary Care Provider: None Chief Complaint: UTI with sepsis Subjective: Other (Still with fatigue. Fever noted) Physical Examination - Vital Signs Temperature: 100.6 F Blood Pressure: 155/80 Pulse: 104 Respirations: 18 Pulse Ox (%): 96 - Physical Exam General: Alert, In no apparent distress, Cooperative HEENT: Atraumatic Neck: Supple Respiratory: Clear to auscultation bilaterally, Normal air movement Cardiovascular: Normal pulses, Regular rate/rhythm Gastrointestinal: Normal bowel sounds, Soft and benign, Non-distended, No masses , No rebound, No guarding Musculoskeletal: No erythema, No tenderness, No warmth Neurological: Normal speech, Normal strength at 5/5 x4 extr, Normal tone, Normal affect - Studies Laboratory Data (last 24 hrs) 01/04/19 18:15: PT 15.0 H, INR 1.27, APTT 32.8 01/04/19 18:15: WBC 12.4 H, Hgb 15.1 H, Hct 44.3, Plt Count 236 01/04/19 18:15: Sodium 130 L, Potassium 3.6, BUN 10, Creatinine 0.92, Glucose 291 H, Total Bilirubin 0.7, AST 41 H, ALT 41, Alkaline Phosphatase 126 H, Lipase 97 Microbiology Data (last 24 hrs): 01/04/19 18:15 Nasopharnyx Influenza Type A Antigen Screen - Final 01/04/19 18:15 Nasopharnyx Influenza Type B Antigen Screen - Final 01/04/19 18:15 Throat Group A Streptococcus Rapid Screen - Final Medications List Reviewed: Yes Assessment & Plan Discharge Plan: Home Plan to discharge in: 48 Hours Physician Review Additional Text: Impression: UTI with fever Dehydration with renal insufficiency Diabetes mellitus type 2 uncontrolled Hypertension uncontrolled Abnormal tsh suspect Hypothyroidism Plan: Will start basal insulin for better diabetic control. Continue with IV Rocephin. Will monitor fever. Await blood and urine culture results. Continue with IV fluids. Will provide medication for hypertension. Tsh abnormal with low free T4. Suspect hypothyroidism. Patient may require medication in the near future. Recommend endocrinology evaluation as an outpatient. Will continue to reassess. Time Spent Managing Pts Care (In Minutes): 55
[2019-01-05] MEDS: FAMOTIDINE 20 MG TAB PO SCH (20:45)
[2019-01-05] MEDS ORDERED: INSULIN GLARGINE 100 UNITS/ML SQ SCH (21:00)
[2019-01-06] MEDS: NA CHLORIDE 0.9% 1,000 ML IV SCH ×2 (04:24→04:52)
[2019-01-06 04:44] LABS: BUN Blood Urea Nitrogen 7 mg/dL (7-18); Bicarbonate 26 mmol/L (21-32); Glucose Level 200 mg/dL (74-106); Magnesium 1.9 mg/dL (1.8-2.4); Potassium 3.6 mmol/L (3.5-5.1); Sodium Level 140 mmol/L (136-145)
[2019-01-06] MEDS: ACETAMINOPHEN 500 MG TAB PO PRN (04:51)
[2019-01-06 06:03] LABS: Absolute Monocytes 0.8 K/uL (0.1-1.3); Basophils % 0.8 % (0-1.3); Eosinophils % 0.3 % (0-4.4); Hematocrit 34.6 % (36.0-45.0); Lymphocytes % 20.6 % (15.3-44.8); MPV 8.7 fL (7.6-11.3); Monocytes % 7.7 % (3.3-12.3); RBC Red Blood Cell Count 4.39 M/uL (3.86-4.86)
[2019-01-06] MEDS: INSULIN -REGULAR HUMAN 50 UNIT/0.5 ML ML SQ SCH (07:30)
[2019-01-06] MEDS ORDERED: DOCUSATE NA 100 MG CAP PO SCH (09:00)
[2019-01-06 09:55] VITALS: BP 131/69; TEMP 97.9
[2019-01-06] MEDS: FAMOTIDINE 20 MG TAB PO SCH (09:55)
[2019-01-06] MEDS: CEFTRIAXONE/SWI 1gm 1 GM/10 ML SYR IV SCH (09:55)
[2019-01-06] MEDS: AMLODIPINE 5 MG TAB PO SCH (09:56)
--- NOTE | 2019-01-06 10:32 | P.DS ---
Admission Date: 01/04/19 Discharge Date: 01/06/19 Primary Care Provider: None Disposition: ROUTINE DISCHARGE Discharge Condition: GOOD Reason for Admission: UTI with sepsis Consultations: none Procedures: Head CT: COMPARISON: Head Brain Wo Cont dated 01/02/2019; HEAD BRAIN W O CONTRAST dated TECHNIQUE: All CT scans are performed using dose optimization technique as appropriate and may include automated exposure control or mA/KV adjustment according to patient size. FINDINGS: No intracranial hemorrhage, hydrocephalus or extra-axial fluid collection.No areas of brain edema or evidence of midline shift. Mild mucosal thickening affects the sphenoid sinus. Mild fluid is seen in the right mastoid air cell. The calvarium is intact. IMPRESSION: No acute intracranial abnormality. Mild mucosal thickening of the sphenoid sinus and mild fluid in the right mastoid air cell. CT Ab/pelvis: COMPARISON: Abdomen Pelvis W Contrast dated 11/28/2018 TECHNIQUE: Axial images were obtained without oral or IV contrast. Lack of contrast limits solid organ and vascular assessment. The [id number] spans the entirety of the system partially obscuring uppermost abdomen and lung bases. Coronal reformatted images were obtained and reviewed. All CT scans are performed using dose optimization technique as appropriate and may include automated exposure control or mA/KV adjustment according to patient size. FINDINGS: The lower lung kulkarni are clear. Cholelithiasis. Imaged portions of the liver and spleen show no suspicious findings on non- contrast imaging. The pancreas and adrenal glands are normal. No pathologic lymphadenopathy in the abdomen or pelvis. No urinary tract stones or obstructive uropathy. No bowel obstruction, free air, free fluid or abscess. Normal appendix noted.Moderate stool is present in the rectosigmoid colon. No significant bony abnormality. IMPRESSION: No urinary tract stones or obstructive uropathy. Cholelithiasis. CXR: COMPARISON: Chest Single View dated 11/28/2018 FINDINGS: Portable technique limits examination quality. The lungs are grossly clear. The heart is upper limit of normal in size. No displaced fractures. IMPRESSION: No acute intrathoracic process suspected. Medical problem list: UTI with fever Dehydration with renal insufficiency Diabetes mellitus type 2 uncontrolled Hypertension uncontrolled Abnormal tsh suspect Hypothyroidism Brief History of Present Illness: 63-year-old female presented emergency room with increased confusion and fatigue. Patient found to have UTI with renal insufficiency and dehydration. Patient was admitted for treatment. Patient with history of hypertension and diabetes. Hospital Course: Patient presented with slight confusion, altered mental status and fatigue related to UTI. Blood and urine culture unremarkable. Urine culture shows mixed niyah. Patient improved with hydration and antibiotic therapy. At discharge she will continue with Bactrim DS 1 pill twice daily for 7 days. Patient will establish care with a physician to follow up this hospitalization. Recommend to follow up on urine culture. UTI prevention education will be provided. Patient with diabetes. A1c 9.5. At discharge medications have been adjusted. Glyburide discontinued due to issues of hypoglycemia. Metformin has been increased. At discharge patient to continue with metformin to 500 mg twice daily. This may need to be further increased within the next 2 weeks to 1000 mg 1 pill twice daily for better blood sugar control. This can be further addressed by her PCP. Recommend to maintain blood sugars less 140 fasting and less than 200 after meals. Patient may require basal insulin if no significant improvement. Lifestyle modification education will be provided. Education on diabetes will also be provided. Patient with hypertension. Medications adjusted. Norvasc discontinued. At discharge she will continue with lisinopril 10 mg daily. Recommend to maintain blood pressures less than 150/80. Further adjustment can be done by her PCP. Patient had abnormal tsh and free T4. Recommend to recheck lab-tsh and free T4 in 2-4 weeks. If still abnormal patient may require medication. Patient may benefit with endocrinology evaluation if still abnormal for possible treatment. Vital Signs/Physical Exam: Temp Pulse Resp BP Pulse Ox 97.9 F 63 16 131/69 94 01/06/19 08:00 01/06/19 08:00 01/06/19 08:00 01/06/19 08:00 01/06/19 08:00 General: Alert, In no apparent distress, Oriented x3, Cooperative HEENT: Atraumatic, Mucous membr. moist/pink Neck: Supple Respiratory: Clear to auscultation bilaterally, Normal air movement Cardiovascular: Normal pulses, Regular rate/rhythm Gastrointestinal: Normal bowel sounds, Soft and benign, Non-distended, No tenderness, No masses, No rebound, No guarding Musculoskeletal: No erythema, No tenderness, No warmth Integumentary: No tenderness/swelling, No erythema, No warmth, No cyanosis Neurological: Normal speech, Normal strength at 5/5 x4 extr, Normal tone, Normal affect Lymphatics: No axilla or inguinal lymphadenopathy Laboratory Data at Discharge: WBC 9.9 K/uL (4.3-10.9) D 01/06/19 05:52 Hgb 12.0 g/dL (12.0-15.0) 01/06/19 05:52 Hct 34.6 % (36.0-45.0) L 01/06/19 05:52 Plt Count 337 K/uL (152-406) 01/06/19 05:52 PT 15.0 SECONDS (9.5-12.5) H 01/04/19 18:15 INR 1.27 01/04/19 18:15 APTT 32.8 SECONDS (24.3-36.9) 01/04/19 18:15 Sodium 140 mmol/L (136-145) 01/06/19 04:00 Potassium 3.6 mmol/L (3.5-5.1) 01/06/19 04:00 BUN 7 mg/dL (7-18) 01/06/19 04:00 Creatinine 0.58 mg/dL (0.55-1.3) 01/06/19 04:00 Glucose 200 mg/dL (74-106) H 01/06/19 04:00 Magnesium 1.9 mg/dL (1.8-2.4) 01/06/19 04:00 Total Bilirubin 0.5 mg/dL (0.2-1.0) 01/05/19 06:18 AST 27 U/L (15-37) 01/05/19 06:18 ALT 41 U/L (12-78) 01/05/19 06:18 Alkaline Phosphatase 112 U/L (45-117) 01/05/19 06:18 Lipase 97 U/L (73-393) 01/04/19 18:15 Home Medications: Docusate [Colace Cap*] 100 mg PO DAILY #30 cap 01/06/19 Lisinopril [Prinivil*] 10 mg PO DAILY #30 tab 01/06/19 Metformin HCl [Glucophage*] 1 tab PO BID #60 tab 01/06/19 Smz./Tmp. [Bactrim Ds 800 MG/160 MG*] 1 tab PO BID #14 tab 01/06/19 New Medications: Docusate [Colace Cap*] 100 mg PO DAILY #30 cap Lisinopril [Prinivil*] 10 mg PO DAILY #30 tab Metformin HCl [Glucophage*] 1 tab PO BID #60 tab Smz./Tmp. [Bactrim Ds 800 MG/160 MG*] 1 tab PO BID #14 tab Patient Discharge Instructions: 1. Patient will follow up a PCP to follow up this hospitalization. 2. Patient presented with slight confusion, altered mental status and fatigue related to UTI. Blood and urine culture unremarkable. Urine culture shows mixed niyah. Patient improved with hydration and antibiotic therapy. At discharge she will continue with Bactrim DS 1 pill twice daily for 7 days. Patient will establish care with a physician to follow up this hospitalization. Recommend to follow up on urine culture. UTI prevention education will be provided. 3. Patient with diabetes. A1c 9.5. At discharge medications have been adjusted. Glyburide discontinued due to issues of hypoglycemia. Metformin has been increased. At discharge patient to continue with metformin to 500 mg twice daily. This may need to be further increased within the next 2 weeks to 1000 mg 1 pill twice daily for better blood sugar control. This can be further addressed by her PCP. Recommend to maintain blood sugars less 140 fasting and less than 200 after meals. Patient may require basal insulin if no significant improvement. Lifestyle modification education will be provided. Education on diabetes will also be provided. 4. Patient with hypertension. Medications adjusted. Norvasc discontinued. At discharge she will continue with lisinopril 10 mg daily. Recommend to maintain blood pressures less than 150/80. Further adjustment can be done by her PCP. 5. Patient had abnormal tsh and free T4. Recommend to recheck lab-tsh and free T4 in 2-4 weeks. If still abnormal patient may require medication. Patient may benefit with endocrinology evaluation if still abnormal for possible treatment. Diet: ADA Activity: Ad myrna Time spent managing pt's care (in minutes): 55
[2019-01-06] MEDS ORDERED: INFLUENZA VACCINE (for 3y+) 0.5 ML DOSE IMVAC ONE (13:00)
[2019-01-06] MEDS ORDERED: NITROFURAN MACRO 100 MG CAP PO SCH (17:00)
[2019-01-06] MEDS ORDERED: SMZ./TMP. 800/160 MG TABLET PO SCH (21:00)
[2019-01-07] MEDS ORDERED: LISINOPRIL 10 MG TAB PO SCH (09:00)
== END 2019-01-06 13:12 | disposition home or self-care (01) ==
LOC: ER 16:11 → ERHOLD 22:19 → 4TH 23:15
PROVIDERS: ADMIT Hospitalist; ATTEND Hospitalist
DX: N39.0 Urinary tract infection, site not specified (principal); N28.9 Disorder of kidney and ureter, unspecified; E86.0 Dehydration; E11.65 Type 2 diabetes mellitus with hyperglycemia; R94.6 Abnormal results of thyroid function studies
CPT/HCPCS: 36415; 70450; 71045; 74176; 76377; 80048; 80053; 80076; 81003; 81015; 82550; 82553; 82962; 83036; 83605; 83690; 83735; 84145; 84439; 84443; 84484; 85025; 85610; 85730; 87040; 87070; 87081; 87086; 87088; 87804; 93005; 96361; 96365; 96366; 96367; 96375; 99285; G0378; J0696; J1100; J1170; J1650; J2405; J3010; J3370; J7030